=== PATIENT | female | born 1995 | race Caucasian/White ===

== ENCOUNTER 2016-11-27 14:41 | Emergency (ER) | payer OTHER ==
[~2016-11-27] VITALS: Ht 160 cm; Wt 63.6 kg
[~2016-11-27 14:41] MED LIST: CIPR-198 PO; DOXY100C43 PO; METR500T PO
[2016-11-27 14:45] VITALS: BP 120/85; PULSE 93; RESP 14; O2SAT 100
--- NOTE | 2016-11-27 15:16 | ED.REPORT ---
HPI-General Illness Date of Service Nov 27, 2016 ED Provider: Harsha Yen Patient is a 21 year old female who presents to the ED complaining of an abscess on her R buttocks onset 4 days ago. Associated symptoms include R ear pain, hearing loss in R ear (onset 2 weeks), dysuria, fatigue, and a possible yeast infection. She denies fever, chills, abdominal pain, or any other symptoms. She is having intermittent sexual contact with condoms with her most recent contact in the past few weeks. She reports that her dysuria started 1 weeks ago and she has had whitish vaginal discharge. She has had the gonorrhea shot twice but never picked up the antibiotics. She is homeless and has been a heroin user for 8 years. She has had 2 periods of sobriety for one year each while she was . Nursing Notes Stated Complaint: ABSCESS, YEAST INFECTION, EAR PAIN Chief Complaint: Skin Rash/Abscess Nursing Notes Reviewed: Yes Allergies: Coded Allergies: No Known Allergies (Verified Allergy, Unknown, 07/12/16) Scheduled Ciprofloxacin (Ciprofloxacin) 500 Mg Tablet 500 MG PO BID Doxycycline Monohyd (Doxycycline Monohyd) 100 Mg Capsule 100 MG PO BID Metronidazole (Flagyl) 500 Mg Tablet 500 MG PO BID Sulfamethoxazole/Trimeth 800-160 mg (Bactrim DS) 1 Each Tablet 1 TABLET PO BID General Time Seen by MD: 15:15 Chief Complaint Other (Abscess ) Hx Obtained From: Patient Arrived By: Walk-in Sudden in Onset?: Yes Onset Occurred: 4 days ago Symptom Duration: Since onset Similar Sx Previous: Yes Past Medical History Past Medical History Notes: Daily heroin use Admit 10/26- for Bilateral hand cellulits, UTI (?Pyelo), and neck pain, but left AMA Past Medical History Kidney infections Bipolar Hepatitis C Anxiety Gonorrhea Chlamydia Reports: Asthma Reports: Depression, Heroin use, IV Drug use Past Surgical History I&D R arm abscess Reports: (x2) Family History Noncontributory Smoking History Current Every Day Smoker Social History Alcohol Use: Denies alcohol use Drug Use: IV drugs, Meth, Other Other Social History: Local resident, Homeless Ambulatory Status Independent Review of Systems Full Review of Systems Constitutional: Reports: Fatigue, Denies: Chills, Fever Ears / Nose / Throat: Reports: Earache right, Hearing loss right GI: Denies: Abdominal pain Female: Reports: Dysuria, Vaginal discharge Skin: Reports Swelling (Abscess ) Complete sys rev & neg: except as marked. Physical Exam Vital Signs Vital Signs Date Time Temp Pulse Resp B/P Pulse Ox O2 Delivery O2 Flow Rate FiO2 11/27/16 14:45 36.4 93 14 120/85 100 Room Air Initial VS: Reviewed Head / Eyes: Atraumatic, Normocephalic Neck: Full range of motion Respiratory: No respiratory distress Neurologic: Alert, Oriented, Nonfocal Psychiatric: Mood/affect normal, Behavior normal, Normal thought content General/Constitutional: Awake, Alert, Well developed Homeless ENT: Airway patent R throat swelling R TM slightly buldged, no fluid behind eardrum. No erythema Abscess Notes: R buttock about 5 cm lateral to douglas cleft with redness of 5x5 cm Abscess #1 Location/Condition: Positive: Buttock R... (Tender) Interpretation & Diagnostics US bedside: Superficial phlegmon on R buttock about 5 cm lateral to cleft Procedures Incision & Drainage Abscess Time: 17:21 Procedure Performed by: ED physician Consent / Setup / Site Prep: Informed consent provided, Consent from patient , Time-out performed, Hand hygiene observed Location of Abscess: R buttock about 5 cm lateral to douglas cleft Local Anesthesia: Bupivacaine 0.5% (30 mL ) Procedural Sedation/Analgesia: Sedation: Ketamine Incised Abscess with Scalpel: #11 Pus Drained: Medium Irrigation: Yes, Copious, 250 cc Post-Procedure / Complications: Packing placed, Dressing applied, No complications, Condition improved, Tolerated procedure well, Patient stable Proced Mod Sedation/Analgesia Time: 17:05 Procedure Performed by: ED physician Sedation Time: Enter # minutes (20) Consent / Setup: Informed consent provided, Consent from patient, Time-out performed, Hand hygiene observed Indication: Other (Abscess I&D) Preparation: medical office technician applied, Pulse oximeter applied, Constant attendance, Supplemental oxygen, Procedure explained VS Prior to Procedure: All vital signs normal CVS/Resp Exam: Normal breath sounds, Normal heart sounds Sedation: Sedation: Ketamine Response During Procedure: Maintained airway well, Oxygenation stable, Sedation appropriate, Vital signs stable Attestation: I performed procedure, I performed sedation Re-Eval/Medical Decision Time of Eval: 16:36 Re-Evaluation/Progress Note: rechecked patient. Discussed plan for procedural sedation for I&D. Counseled Regarding: Diagnosis, Need for follow-up, When/why to return to ED Discharge & Departure Primary Impression: Abscess of buttock, right Additional Impression: Heroin abuse Disposition: Home Discharge Condition All VS Reviewed: Yes Condition: Improved Patient Instructions: Abscess Incision and Drainage (ED) Additional Instructions: Take the antibiotic twice daily for 10 days (Bactrim). Clean the wound daily. Remove the packing in 24 hours. It will take some weeks to heal completely. Ibuprofen 800mg every 8 hours. Return to the ER if you are getting any worse. Return to Residency clinic, Urgent care or the ER Tuesday for a recheck. Referrals: [facility] Scribe Attestation Portions of this note were transcribed by Karen Roe. I, Dr. Yen personally performed the history, physical exam and medical decision-making; I reviewed and confirmed the accuracy of the information in the transcribed note. Signed by: Karen Roe 11/27/16, [id number] copies to: [facility] Harsha Yen MD Nov 27, 2016 15:16 KAREN ROE Nov 27, 2016 15:46
[2016-11-27] MEDS ORDERED: cefTRIAXone Inj 250 MG, Lidocaine PF 1% Inj 0.9 ML in Syringe 1 EACH IM ONE (15:45)
[2016-11-27] MEDS ORDERED: Ketamine 100 mg/mL 5 mL Inj IM ONE ×2 (16:45→18:50)
[2016-11-27] MEDS ORDERED: SULF1TAB7 PO (18:26)
[2016-11-27] MEDS ORDERED: Trimethoprim-Sulfa 160 mg-800 mg Tablet PO ONE (18:30)
[2016-11-27] MEDS ORDERED: Ondansetron 8 mg ODT Tablet PO ONE (19:45)
[2016-11-28 00:32] VITALS: BP 106/60; PULSE 73; RESP 14; O2SAT 100
[2016-11-28 00:36] VITALS: BP 106/60; PULSE 73; RESP 14; O2SAT 100
== END 2016-11-28 00:41 | disposition home or self-care (01) ==
LOC: SED 14:41
DX: L02.31 Cutaneous abscess of buttock (principal); F11.10 Opioid abuse, uncomplicated; F17.200 Nicotine dependence, unspecified, uncomplicated
CPT/HCPCS: 10061; 94799; 96374; 99285; J0696

== ENCOUNTER 2017-06-02 01:55 | Emergency (ER) | payer OTHER ==
[~2017-06-02] VITALS: Ht 160 cm; Wt 68.2 kg
[~2017-06-02 01:55] MED LIST changes: +SULF1TAB7 PO
[2017-06-02 02:00] VITALS: BP 137/85; PULSE 101; RESP 20; O2SAT 99
--- NOTE | 2017-06-02 02:07 | ED.REPORT ---
HPI-General Illness Date of Service Jun 02, 2017 ED Provider: Dr. Smiley 21 y/o female with a hx of heroin and meth use presents to the ED complaining of left wrist pain and swelling, onset few days ago. The pt has had similar sx before on the right side at which time she was diagnosed with an infection in the wrist. She reports difficulty bending her wrist and holding objects. She denies fever. The pt states "I'm on Methadone but I messed up and injected once. " Nursing Notes Stated Complaint: INFECTION L WRIST Chief Complaint: Extremity Trauma Nursing Notes Reviewed: Yes Allergies: Coded Allergies: No Known Allergies (Verified Allergy, Unknown, 06/02/17) Scheduled Amoxicillin/Clav K ER 1000-62.5 mg (Augmentin XR 1000-62.5 mg) 1 Each Tab.er.12h 1 TABLET PO BID Ciprofloxacin (Ciprofloxacin) 500 Mg Tablet 500 MG PO BID Doxycycline Monohyd (Doxycycline Monohyd) 100 Mg Capsule 100 MG PO BID Metronidazole (Flagyl) 500 Mg Tablet 500 MG PO BID Sulfamethoxazole/Trimeth 800-160 mg (Bactrim DS) 1 Each Tablet 1 TABLET PO BID General Time Seen by MD: 02:07 Chief Complaint Other (left wrist pain) Hx Obtained From: Patient Arrived By: Walk-in Onset Occurred: 3 days ago Symptom Duration: Since onset Location: : Wrist left Quality: Painful Radiation: : Does not radiate Severity: Current: Mild Severity: Maximum: Mild Recent Healthcare: Recent doctor visit Similar Sx Previous: Yes (on right wrist) Past Medical History Past Medical History Kidney infections Bipolar Hepatitis C Anxiety Gonorrhea Chlamydia Asthma Depression Heroin use IV drug use Past Surgical History I&D R arm abscess Family History Noncontributory Smoking History Current Every Day Smoker Social History Alcohol Use: Denies alcohol use Drug Use: IV drugs, Meth, Other Other Social History: Local resident, Homeless Ambulatory Status Independent Review of Systems Full Review of Systems Musculoskeletal: Reports: Joint pain (left wrist), Joint swelling (left wrist) Complete sys rev & neg: except as marked. Physical Exam Vital Signs Vital Signs Date Time Temp Pulse Resp B/P Pulse Ox O2 Delivery O2 Flow Rate FiO2 06/02/17 03:05 36.8 101 16 137/85 99 Room Air 06/02/17 02:00 36.8 101 20 137/85 99 Room Air Initial VS: Reviewed Head / Eyes: Atraumatic, Normocephalic, PERRL Neck: Supple, Non-tender, Full range of motion Respiratory: No respiratory distress Cardiovascular: Intact distal pulses Abdomen / GI: Soft, Non-tender Extremities: Vascular intact, Neuro intact, No swelling, No tenderness Skin: Warm, Dry, No cyanosis Neurologic: Alert, Oriented, Nonfocal General/Constitutional: Awake, Alert, No acute distress, Cooperative Wrist / Hand: Atraumatic, Full range of motion, No deformity, Neurologic intact , Vascular intact No left wrist tenderness with the extension of the thumb. No proximal streaking or involvement of synovial sheath. Cellulitis of dorsal side of the left wrist. Procedures Splint Application - Fx Mgt Time: 02:55 Procedure Performed by: Color Maker Precise Anatomic Location: Left wrist Post-Procedure / Complications: Cap refill normal, Post splint vascular nl, Post splint neuro nl, Condition improved, Tolerated procedure well, Patient stable Re-Eval/Medical Decision Med Decision/Clinical Course 21-year-old IV drug abuser currently on methadone with this prolapse, presents with an infection at her injection site. No indication of T and a synovitis by exam. Hot soaks, Augmentin, and recheck tomorrow. Spica splint placed for comfort. Time of Eval: 02:11 Re-Evaluation/Progress Note: Rechecked pt. Discussed diagnosis and plan to discharge. Pt understands and agrees with the plan. F/U instruction and RTER warning given. All questions addressed. Counseled Regarding: Diagnosis, Need for follow-up, When/why to return to ED Discharge & Departure Primary Impression: Cellulitis Site of cellulitis: extremity Site of cellulitis of extremity: upper extremity Laterality: left Qualified Code: L03.114 - Cellulitis of left upper limb Additional Impression: Heroin abuse Disposition: Home Discharge Condition All VS Reviewed: Yes Condition: Stable Patient Instructions: Cellulitis (ED) Additional Instructions: There is no particular evidence of tenosynovitis at this point. However, your concerns are correct, as that can develop in the setting. Begin Augmentin twice daily. Return tomorrow at 10:00 PM for recheck. Wear thumb spica splint except to wash or soak. Apply a heating pad or hot wet soaks 4-5 times daily to bring blood to the area and help to fight off the infection. Referrals: [facility] Residency [facility] Scribe Attestation Portions of this note were transcribed by Cindy Chaney. I,, personally performed the history, physical exam and medical decision-making;I reviewed and confirmed the accuracy of the information in the transcribed note. Signed by Rachel Le. 06/02/17 Rubén Smiley MD Jun 02, 2017 02:07 Cindy Chaney Jun 02, 2017 02:48
[2017-06-02] MEDS ORDERED: AMPICILLIN SULBACTAM IM ONE ×2 (02:25→02:45)
[2017-06-02] MEDS ORDERED: AMOX-364 PO (02:26)
[2017-06-02] MEDS ORDERED: LIDOCAINE 1% IM ONE (02:45)
[2017-06-02 03:05] VITALS: BP 137/85; PULSE 101; RESP 16; O2SAT 99
== END 2017-06-02 03:06 | disposition home or self-care (01) ==
LOC: SED 01:55
DX: L03.114 Cellulitis of left upper limb (principal); F11.10 Opioid abuse, uncomplicated; F31.9 Bipolar disorder, unspecified; F41.8 Other specified anxiety disorders; J45.909 Unspecified asthma, uncomplicated; F17.200 Nicotine dependence, unspecified, uncomplicated
CPT/HCPCS: 96372; 99284; J0295; J1885

== ENCOUNTER 2017-06-03 01:11 | Emergency (ER) | payer OTHER ==
[~2017-06-03] VITALS: Ht 160 cm; Wt 68.2 kg
[~2017-06-03 01:11] MED LIST changes: +AMOX-364 PO
[2017-06-03 01:16] VITALS: BP 117/79; PULSE 73; RESP 20; O2SAT 100
--- NOTE | 2017-06-03 01:19 | ED.REPORT ---
HPI-Extremity Problem Upper Date of Service Jun 03, 2017 ED Provider: Dr. Pena Pt is a 21 y/o female w/ a hx of IVDA, Hep C, prior MRSA abscesses, presenting to the ED c/o worsening redness, pain, and swelling of her left wrist onset 2 days ago. She previously injected in the affected location with a dirty needle on the day of onset. The patient was seen in the ED last night for this and was given Unasyn IM and discharged with antibiotics which she did not fill. Since yesterday, she has been experiencing worsening pain, swelling, and now decreased range of motion. She c/o associated nausea. Pt denies fever, chills, abnormal diaphoresis, vomiting. The patient has a hx of MRSA abscesses with last hospitalization for osteomyelitis of the right wrist. She is also reporting left ear pain which she attributes to prior sinus troubles. Nursing Notes Stated Complaint: LEFT WRIST INFECTION RECHECK Chief Complaint: Skin Rash/Abscess Nursing Notes Reviewed: Yes (Fleecs, Lightspeed not reconciled) Allergies: Coded Allergies: No Known Allergies (Verified Allergy, Unknown, 06/02/17) Scheduled Amoxicillin/Clav K ER 1000-62.5 mg (Augmentin XR 1000-62.5 mg) 1 Each Tab.er.12h 1 TABLET PO BID Ciprofloxacin (Ciprofloxacin) 500 Mg Tablet 500 MG PO BID Doxycycline Monohyd (Doxycycline Monohyd) 100 Mg Capsule 100 MG PO BID Metronidazole (Flagyl) 500 Mg Tablet 500 MG PO BID Sulfamethoxazole/Trimeth 800-160 mg (Bactrim DS) 1 Each Tablet 1 TABLET PO BID General Time Seen by MD: 01:17 Chief Complaint Other (wrist cell) Hx Obtained From: Patient Arrived By: Walk-in Onset Occurred: 2 days ago Symptom Duration: Since onset Location: : Wrist left Quality: Painful Severity: Current: Moderate Severity: Maximum: Moderate Recent Healthcare: Recent doctor visit, Previous diagnosis Similar Sx Previous: Yes Past Medical History Past Medical History Pyelonephritis Bipolar Hepatitis C Anxiety Gonorrhea Chlamydia Asthma Depression Heroin use IV drug abuse 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 GI: Reports: Nausea, Denies: Vomiting Physical Exam Initial Vital Signs Vital Signs (First) Date Time Temp Pulse Resp B/P Pulse Ox O2 Delivery O2 Flow Rate FiO2 06/03/17 01:16 36.3 73 20 117/79 100 Room Air Initial VS: Reviewed, Vital signs normal Abdomen / GI: Soft Neurologic: Alert, Oriented, Nonfocal Psychiatric: Mood/affect normal, Behavior normal, Normal thought content General/Constitutional: Awake, Alert, No acute distress, Cooperative, Not toxic appearing Cardiovascular: Heart rate NL, Regular rhythm, Heart sounds NL, No murmurs Heart Rate / Rhythm: Negative: Tachycardia Wrist / Hand: No deformity, Neurologic intact, Vascular intact Swelling of the dorsum of the wrist with decreased ROM of the thumb and wrist. No celia warmth No celia fluctuance of a celia abscess Skin: Warm, Dry, Intact Covered in track tapia Interpretation & Diagnostics Lab Results Interpretation Result Diagram: 06/03/17 0130 06/03/17 0130 Test 06/03/17 01:26 06/03/17 01:30 Hold Pete Top Tube Received (Received) White Blood Count 4.0th/mm3 (3.8-10.1) Red Blood Count 4.57mil/mm3 (3.90-5.20) Hemoglobin 11.5g/dL (12.0-15.6) Hematocrit 35.0% (35.0-46.0) Mean Corpuscular Volume 76.6fL (81-100) Mean Corpuscular Hemoglobin 25.2pg (27.0-35.0) Mean Corpuscular Hemoglobin Concent 32.9% (32.0-37.0) Red Cell Distribution Width 14.1% (12.3-15.4) Platelet Count 234bil/L (150-400) Neutrophils (%) (Auto) 40.1% (40-74) Lymphocytes (%) (Auto) 50.6% (14-46) Monocytes (%) (Auto) 8.4% (4-12) Eosinophils (%) (Auto) 0.5% (0-5) Basophils (%) (Auto) 0.2% (0-3) Erythrocyte Sedimentation Rate 17mm/hr (0-32) Sodium Level 137mEq/L (134-144) Potassium Level 4.0mEq/L (3.5-5.2) Chloride Level 100mEq/L (97-108) Carbon Dioxide Level 23mmol/L (18-29) Blood Urea Nitrogen 14mg/dL (6-20) Creatinine 0.59mg/dL (0.57-1.00) Estimat Glomerular Filtration Rate 181mL/min (>59) Glucose Level 85mg/dL (60-99) Calcium Level 9.2mg/dL (8.5-10.1) Total Bilirubin 0.3mg/dL (0.0-1.2) Aspartate Amino Transf (AST/SGOT) 28U/L (0-50) Alanine Aminotransferase (ALT/SGPT) 24U/L (0-32) Alkaline Phosphatase 124U/L (25-150) C-Reactive Protein 0.1mg/dL (0.0-0.5) Total Protein 7.2g/dL (6.4-8.4) Albumin 4.0g/dL (3.4-5.0) Lab Results Interpretation: CBC normal CMP normal ESR normal CRP normal X-Ray Interpretation Xray Interpretation: No signs of osteomyelitis X-Ray Ordered: Wrist left Interpretation / Wet Read by: Wet read ED physician Interpretation: Normal exam Re-Eval/Medical Decision Med Decision/Clinical Course This is a 21-year-old female. History of IVDA who returns for request for recheck having developed some slightly worsening pain and swelling in the left wrist. She was seen last night and admitted and injected drugs in the left wrist,'s concern is a dirty needle, may be developing an infection. She has had increasing pain and discomfort. She received an IM dose of Unasyn, and was given a prescription for Augmentin, but did not fill or take it. Today she thinks the swelling and pain and discomfort slightly worse. She is afebrile, nontoxic. She does have some mild swelling, but I do not appreciate celia signs of overt abscess, I am concerned about developing soft tissue infection and cellulitis-but there is no beefy redness or warmth, but there is some visible swelling. She has decreased range of motion of the wrist, but I do not appreciate isolated focus along the single tendon sheath to indicate tenosynovitis. I do not appreciate celia joint involvement. The patient has a complex history of multiple prior infections as well. She does not appear toxic. She is on methadone as well. At this point the patient received a second dose of IM Unasyn. A prepack of Augmentin and is being provided to help improve compliance. Radiographs are obtained were negative. I still think that continued antibiotics are appropriate and not finding indications suggest an abscess, need for hospitalization-but close follow-up still over the next few days is still warranted. The weekend is approaching, indicated to be appropriate for her to return again to the bridge department for another recheck in 2 days Source of Hx: Old records Differential Diagnosis: Positive: Cellulitis, Negative: Abrasion, Gamekeepers thumb, Laceration, Shoulder disloc ant, Shoulder disloc post, Subungual hematoma Counseled Regarding: Diagnosis, Lab results, Need for follow-up, When/why to return to ED Discharge & Departure Impression: Primary Impression: Infection of left wrist Additional Impression: Intravenous drug abuse Disposition: Home Discharge Condition All VS Reviewed: Yes Condition: Improved Additional Instructions: 1. You received an injection of the antibiotic Unasyn in the ED. 2. It is critically important that you take the oral antibiotics! - Take augmentin 875mg twice a day for 10 days. 3. Wear the splint for comfort. 4. Consider following up with [facility] for help with chemical dependency. 5. You should be rechecked again in 2 days. Return to the ED again if further worsening - fever, increased pain/swelling. Referrals: [facility] (PCP) [facility] Residency Clinic Scribe Attestation Portions of this note were transcribed by El Drake. I, Dr. Pena personally performed the history, physical exam and medical decision-making; I reviewed and confirmed the accuracy of the information in the transcribed note. Jose Pena MD Jun 03, 2017 01:18 EL DRAKE Jun 03, 2017 01:28
[2017-06-03] MEDS ORDERED: _Amoxicillin-Clavulanate 875-125 mg Tablet PO SCH (01:30)
[2017-06-03] MEDS ORDERED: AMPICILLIN SULBACTAM IM ONE (01:30)
[2017-06-03 01:53] LABS: Mean Corpuscular Volume 76.6 fL (81-100)
[2017-06-03 01:54] LABS: BASOPHILS % (AUTO) 0.2 % (0-3); EOSINOPHILS % (AUTO) 0.5 % (0-5); MONOCYTES % (AUTO) 8.4 % (4-12); Mean Corpuscular Hemoglobin 25.2 pg (27.0-35.0); NEUTROPHILS % (AUTO) 40.1 % (40-74); Platelet Count 234 bil/L (150-400)
[2017-06-03 02:13] LABS: ERYTHROCYTE SEDIMENTATION RATE 17 mm/hr (0-32)
[2017-06-03 02:41] VITALS: BP 110/74; PULSE 70; RESP 18; O2SAT 100
--- NOTE | 2017-06-03 08:32 | DRSVH ---
PROCEDURE: X-RAY LEFT WRIST COMPLETE, MINIMUM THREE VIEWS ([id number]) INDICATIONS: pain, swelling TECHNIQUE: 3 views of the wrist were acquired. COMPARISON: None. FINDINGS: Bones: No fractures or dislocations. No suspicious bony lesions. Scaphoid view: Not requested. Soft tissues: No suspicious soft tissue calcifications. IMPRESSION: Although no bony erosions are identified, plain film radiography is relatively insensiti ve in the acute phases of osteomyelitis and may not demonstrate radiographic changes for 15 days. If acute osteomyelitis is of clinical concern, nuclear medicine regional bone scan or MRI is recommende d. Dictated by: Nicholas Rudolph [facility] Interpreted: Brandon Rosa MD on 06/03/2017 at 8:31 Transcribed by: MILADIS on 06/03/2017 at 8:31 Approved by: Brandon Rosa M.D. on 06/03/2017 at 14:58
== END 2017-06-03 02:42 | disposition home or self-care (01) ==
LOC: SED 01:11
DX: L08.9 Local infection of the skin and subcutaneous tissue, unspecified (principal); F19.10 Other psychoactive substance abuse, uncomplicated; F17.200 Nicotine dependence, unspecified, uncomplicated
CPT/HCPCS: 36415; 73110; 80053; 85025; 85651; 86140; 96372; 99284; J0295

== ENCOUNTER 2017-06-20 21:14 | Emergency (ER) | payer OTHER ==
[~2017-06-20] VITALS: Ht 160 cm; Wt 70.5 kg
[2017-06-20 21:32] VITALS: BP 116/78; PULSE 83; RESP 14; O2SAT 100
--- NOTE | 2017-06-20 23:22 | ED.REPORT ---
HPI-General Illness Date of Service Jun 20, 2017 ED Provider: Festus Asencio MD The pt is a 21 y/o female with a hx of IV drug abuse (currently on methadone), Hep C, prior MRSA abscesses who presents to the ED complaining of a painful abscess on the left thigh laterally for the last 2 weeks. She describes her pain as throbbing, constant and rates it 8/10 in severity. It gets worse when she touches it, otherwise no notable alleviating or exacerbating factors. No fevers, chills. No other pertinent complaints at this time, including no nausea , vomiting,shortness of breath, chest pain, difficulty walking, hip pain, knee pain. Nursing Notes Stated Complaint: LEFT UPPER THIGH ABSCESS Chief Complaint: Extremity Trauma Nursing Notes Reviewed: Yes Allergies: Coded Allergies: No Known Allergies (Verified Allergy, Unknown, 06/02/17) Scheduled Amoxicillin/Clav K ER 1000-62.5 mg (Augmentin XR 1000-62.5 mg) 1 Each Tab.er.12h 1 TABLET PO BID Ciprofloxacin (Ciprofloxacin) 500 Mg Tablet 500 MG PO BID Doxycycline Monohyd (Doxycycline Monohyd) 100 Mg Capsule 100 MG PO BID Doxycycline Monohyd (Doxycycline Monohyd) 100 Mg Capsule 100 MG PO BID Metronidazole (Flagyl) 500 Mg Tablet 500 MG PO BID Sulfamethoxazole/Trimeth 800-160 mg (Bactrim DS) 1 Each Tablet 1 TABLET PO BID General Time Seen by MD: 23:11 Chief Complaint Other (painful abscess on left thigh) Hx Obtained From: Patient Arrived By: Walk-in Onset Occurred: More than a week ago... 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 Physical Exam Nursing note and vitals reviewed. Constitutional: Well-developed, well-nourished. Not diaphoretic. Head: Normocephalic and atraumatic. Mouth/Throat: Mucous membranes moist. Eyes: No conjunctival injection. No scleral icterus. Neck: Supple, no tracheal deviation. Cardiovascular: Normal rate,regular rhythm. Equal and intact distal pulses throughout. Pulmonary/Chest: Effort normal. No respiratory distress. Abdominal: Soft. No distension. There is no tenderness, rebound, or guarding. Musculoskeletal: Range of motion grossly intact, moving all extremities. Full range of motion at the left hip and left knee without pain. Neurological: AOx3. Grossly nonfocal exam. Strength and sensation intact and equal to bilateral upper and lower extremities. Skin: Warm and dry. No pallor appreciated. 5x3cm area of erythema to the left lateral thigh. Small amount of induration without significant fluctuance. No erythema extending towards the hip or down to the knee. Psychiatric: Appropriate mood and affect. Behavior appears normal. Vital Signs Vital Signs Date Time Temp Pulse Resp B/P Pulse Ox O2 Delivery O2 Flow Rate FiO2 06/20/17 21:32 36.8 83 14 116/78 100 Room Air Procedures Incision & Drainage Abscess Time: 00:01 Procedure Performed by: ED physician Consent / Setup / Site Prep: Consent from patient, Time-out performed, Hand hygiene observed, Stand sterile technique, Standard surgical scrub, Sterile drapes applied Location of Abscess: left lateral thigh Skin Preparation Agent: Betadine Local Anesthesia: Lidocaine w epi 1% Incised Abscess with Scalpel: #11 Pus Drained: Medium, Purulent discharge Post-Procedure / Complications: Packing placed, Dressing applied, No complications, Condition improved, Tolerated procedure well, Patient stable Re-Eval/Medical Decision Med Decision/Clinical Course In summary, 21-year-old female with a history of recurrent abscesses presenting to the ED for evaluation of an abscess to the left lateral thigh. No systemic symptoms. Vital signs within normal limits. Afebrile, nontoxic appearing. I do not think that a laboratory workup is necessary at this time given that she is well-appearing and afebrile, normal examination, no systemic symptoms. No streaking up towards her hip or down to the knee, full range of motion, no clinical suspicion for joint involvement. Incision and drainage performed as above; tolerated well. Plan discharge home with a prescription for antibiotics , very careful return precautions and instructions for her I&D care, and PCP follow-up in the next 1-2 days for reassessment. Patient agreeable with plan as stated, no further questions. Source of Hx: Old records Time of Eval: 23:57 Re-Evaluation/Progress Note: Bedside ultrasound done. Time of Eval: 00:18 Counseled Regarding: Diagnosis, Need for follow-up, When/why to return to ED Discharge & Departure Primary Impression: Abscess of left thigh Additional Impression: Intravenous drug abuse Disposition: Home Discharge Condition All VS Reviewed: Yes Condition: Improved Patient Instructions: Abscess (ED), Incision and Drainage (ED) Additional Instructions: Your abscess was drained in the ED today. Please read the attached instructions on how best to care for this. Follow up with your primary care provider for further evaluation in the next 1 to 2 days. Return to the emergency department in case of fever, chills, if the redness going up your legs, difficulty moving your legs or hips, or if you have any other symptoms of concern to you. Referrals: [facility] Scribe Attestation Portions of this note were transcribed by Cindy Chaney. I,, personally performed the history, physical exam and medical decision-making;I reviewed and confirmed the accuracy of the information in the transcribed note. Signed by Rachel Le. 06/21/17 Festus Asencio MD Jun 20, 2017 23:22 Cindy Chaney Jun 20, 2017 23:56
[2017-06-20] MEDS ORDERED: Lidocaine 1%-Epi 1:100,000 20 mL Inj ONE (23:52)
[2017-06-21] MEDS ORDERED: DOXY100C43 PO (00:23)
[2017-06-21 00:38] VITALS: BP 109/73; PULSE 76; RESP 18; O2SAT 100
== END 2017-06-21 00:39 | disposition home or self-care (01) ==
LOC: SED 21:14
DX: L02.416 Cutaneous abscess of left lower limb (principal); F11.10 Opioid abuse, uncomplicated; F15.10 Other stimulant abuse, uncomplicated; F17.200 Nicotine dependence, unspecified, uncomplicated; B18.2 Chronic viral hepatitis C; Z86.14 Personal history of Methicillin resistant Staphylococcus aureus infection

== ENCOUNTER 2017-06-25 20:07 | Inpatient (IN) | payer OTHER ==
[~2017-06-25] VITALS: Ht 160 cm; Wt 69.2 kg
[2017-06-25 20:13] VITALS: BP 111/75; PULSE 120; RESP 17; O2SAT 99
--- NOTE | 2017-06-25 21:12 | ED.REPORT ---
HPI-Rash / Abscess Date of Service Jun 25, 2017 ED Provider: Devon Palacio MD Patient is a 21 year old female with a history of IV drug use (currently on Methadone), Hepatitis C, recurrent abscesses who presents to the ED complaining of increasing pain of her left thigh for the past week. Associated symptoms include fever, spreading redness, pain radiating up into her hip and difficulty walking due to pain. The patient was seen at the ED on 06/21/17 to have the abscess on her left thigh drained and has been taking the Keflex that was prescribed to her but her pain has only gotten worse. Nursing Notes Stated Complaint: ABSCESS ON LEFT ARM Chief Complaint: Skin Rash/Abscess Nursing Notes Reviewed: Yes Allergies: Coded Allergies: No Known Allergies (Verified Allergy, Unknown, 06/02/17) Scheduled Doxycycline Monohyd (Doxycycline Monohyd) 100 Mg Capsule 100 MG PO BID Methadone (Methadone) 10 Mg Tab 70 MG PO QAM Scheduled PRN Ibuprofen (Ibuprofen) 200 Mg Capsule 400 MG PO QID PRN PRN For Pain General Time Seen by MD: 21:05 Chief Complaint Abscess Hx Obtained From: Patient Arrived By: Walk-in Onset Occurred: More than a week ago... 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 Neurologic: Reports: Problem walking (due to pain) Physical Exam Initial Vital Signs Vital Signs (First) Date Time Temp Pulse Resp B/P Pulse Ox O2 Delivery O2 Flow Rate FiO2 06/25/17 20:13 37.3 120 17 111/75 99 Room Air Initial VS: Reviewed General/Constitutional: Awake, Alert Skin: Warm, Dry Head / Eyes: Atraumatic, Normocephalic, PERRL, EOMI Respiratory / Chest: Atraumatic, Breath sounds NL, Breath sounds = bilat, No respiratory distress Cardiovascular: Regular rhythm, Heart sounds NL, No gallop, No murmurs, No rubs Upper Extremity / MS: Atraumatic, Full range of motion LOWER EXTREMITIES: 15cm x 15 cm area of erythema and induration of the left lateral thigh in the middle there is a 1cm laceration from previous I&D no fluctuance no obvious abscess for I&D large patch of cellulitis Neurologic: Oriented X3, Speech NL Psychiatric: Affect NL, Mood NL Interpretation & Diagnostics Lab Results Interpretation Result Diagram: 06/25/176 06/25/170 X-Ray Chest Interpretation Chest Xray Interpretation: central line placed slightly too deep View: Portable, 1 view Interpretation / Wet Read by: Wet read ED physician Procedures Central Line Placement Time: 22:30 Procedure Performed by: ED physician Consent / Setup / Site Prep: Consent from patient, Time-out performed, Pulse oximeter applied, vehicle monitor technician applied, Hand hygiene observed, Standard surgical scrub, Sterile drapes applied, Position Trendelenburg Skin Preparation Agent: Betadine Local Anesthesia: Lidocaine 1% Procedural Sedation/Analgesia: Analgesia: Dilaudid Side / Location / Ultrasound: Internal jugular right Catheter / Lumen / Technique: Triple lumen, Good blood return, Secured w catheter device Post-Procedure / Complications: Antibiotic oint applied, Dressing placed, CXR neg for pneumothorax, Condition improved, Tolerated procedure well, Patient stable Re-Eval/Medical Decision Med Decision/Clinical Course Patient is a 21 year old female with a history of IV drug use (currently on Methadone), Hepatitis C, recurrent abscesses who presents to the ED complaining of increasing pain of her left thigh for the past week. She was recently seen in this emergency department at which time incision and drainage of a left thigh abscess was performed. Since going home she has had increasing firmness and redness about her left thigh. Here in the emergency department the patient is afebrile stable vital signs and examination as above. She is noted however to be tachycardic. Multiple attempts were made at establishing peripheral IV access. We were unable to establish a peripheral IV or an external jugular IV. Given the patient's need for IV antibiotics I performed placement of central line as documented above. Medications: IV Vancomycin and Ceftriaxone Chest X-ray after central line: line slightly too deep Repeat X-ray shows better placement of the line Labs: CBC unremarkable besides a hematocrit of 31.4 and lactic of 0.9 Patient remained hemodynamically stable and afebrile. Ultrasound was obtained which demonstrated cobblestoning appearance of the soft tissues consistent with cellulitis though there was no pocket of fluid amenable to incision and drainage. Patient was discussed with hospitalist and admitted for further treatment with IV antibiotics. Transferred in stable condition. Re-Evaluation/Progress #1: Time of Eval: 21:37 Re-Evaluation/Progress Note: Discussed plan for admit. Patient understands and agrees to plan. All questions were addressed. Re-Evaluation/Progress #2: Time of Eval: 22:00 Re-Evaluation/Progress Note: Discussed plan for central line placement. Patient understands and agrees to plan. All questions were addressed. Consultation #1: Referral / Consult Name: Sera Ortiz DO Consulted With: Hospitalist Call Returned at: 21:38 Paper Machine Supervisor: Agrees with eval, Agrees with plan Note: Consult with Dr. Ortiz, who would like a call back once the labs are done. Consultation #2: Referral / Consult Name: Sera Ortiz DO Consulted With: Hospitalist Call Returned at: 02:05 Paper Machine Supervisor: Agrees with eval, Agrees with plan, Accepts admit Counseled Regarding: Diagnosis, Lab results, Need for admission Discharge & Departure Impression: Primary Impression: Cellulitis Site of cellulitis: extremity Site of cellulitis of extremity: lower extremity Laterality: left Qualified Code: L03.116 - Cellulitis of left lower limb Additional Impressions: IV drug abuse Tachycardia Disposition: ADMITTED TO HOSPITAL Discharge Condition All VS Reviewed: Yes Condition: Stable Referrals: NOPCP (PCP) Rachel Attestation Portions of this note were transcribed by Nicky Sanford. I, Dr. Palacio personally performed the history, physical exam and medical decision-making; I reviewed and confirmed the accuracy of the information in the transcribed note. Signed by: Rachel Rodriguez, 06/25/17 Devon Palacio MD Jun 25, 2017 21:12 Linn Sanford Jun 25, 2017 21:36
[2017-06-25] MEDS ORDERED: 0.9% Sodium Chloride 1,000 ML IV ONE (21:39)
[2017-06-25] MEDS ORDERED: cefTRIAXone Inj 2,000 MG in Dextrose 5% 50 ML IV STA (21:39)
[2017-06-25] MEDS ORDERED: Ondansetron 2 mg/mL 2 mL Inj IVPUSH PRN (21:40)
[2017-06-25] MEDS ORDERED: Vancomycin Dose per Pharmacist XX ONE (21:40)
[2017-06-25] MEDS ORDERED: Alum-Mag Hydrox-Simeth 30 mL Suspension PO PRN (21:40)
[2017-06-25] MEDS ORDERED: Vancomycin Inj 1,500 MG in 0.9% Sodium Chloride 500 ML IV ONE (21:50)
[2017-06-25] MEDS ORDERED: MTH10T PO (21:59)
[2017-06-25] MEDS ORDERED: IBUP200C PO (22:00)
[2017-06-25 22:09] LABS: BASOPHILS % (AUTO) 0.1 % (0-3); EOSINOPHILS % (AUTO) 0.7 % (0-5); MONOCYTES % (AUTO) 6.7 % (4-12); Mean Corpuscular Hemoglobin 25.6 pg (27.0-35.0); Mean Corpuscular Volume 77.9 fL (81-100); Platelet Count 122 bil/L (150-400)
[2017-06-25] MEDS ORDERED: HYDROmorphone 1 mg/mL Inj ONE (22:32)
[2017-06-25 23:01] VITALS: BP 126/70; PULSE 94; RESP 16; O2SAT 97
[2017-06-25 23:36] VITALS: BP 118/69; PULSE 91; RESP 16; O2SAT 95
[2017-06-26] VITALS (14 sets, daily range): BP systolic 95–118; BP diastolic 60–76; PULSE 70–95; RESP 14–20; O2SAT 93–100
[2017-06-26] MEDS: Vancomycin Dose per Pharmacist XX SCH ×2 (01:35→07:31)
--- NOTE | 2017-06-26 01:40 | NUR ---
Admit Note Pt. arrived on floor at 0140. Pt. alert and oriented x3. Sharp container taken out of room. Security locked belongings in closet. Pt. had central line intact and patent. Pt. requested benadryl. Diana aware and ordered Benadryl PO. Pt. placed on contact precautions per Diana's MD order. Will continue to monitor.
--- NOTE | 2017-06-26 01:45 | NUR ---
Blood cult Pt. declined 2nd blood culture being taken.
--- NOTE | 2017-06-26 01:47 | PCM.HPMED ---
Subjective Date of Service Jun 26, 2017 Primary Provider: Admitting Physician: Sera Ortiz DO Primary Care Physician: Job Attending Physician: Sera Ortiz DO Admit Status: From the Emergency Department Chief Complaint: worsening pain on thigh History of Present Illness: 21yoF with history of IVDU, hepatitis C, MRSA abscesses admitted due to outpatient failure of treatment of cellulitis s/p I&D Patient states that she has been on methadone but had a relapse about three weeks ago at which time she notes a left thigh wound that began to develop. It continued to worsen until 5 days ago when she was seen at [facility] ED and the area was found to have an abscess. I&D was completed and patient was discharged with abx. Despite taking abx her left thigh cellulitis worsened. Associated symptoms include fevers and chills. She denies any other complaints at this time Patient is currently on methadone treatment and obtains her methadone from [facility]. Daily dose is 70mg / day. Review of Systems: complete review of systems obtained. positive as per hpi otherwise negative. 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 Surgical History I&D R arm abscess Social History Hx Alcohol Use: No Hx Substance Use: Yes (heroin, meth) Smoking Status: Current Every Day Smoker Exam Vital Signs Vital Sign - Last Date Time Temp Pulse Resp B/P Pulse Ox O2 Delivery O2 Flow Rate FiO2 06/26/17 00:25 36.4 91 16 118/69 95 Room Air Intake and Output 06/25/17 06/25/17 06/26/17 Cumulative From/Thru 15:00 23:00 07:00 06/25/17 20:13 - 06/25/17 23:00 Intake Total 990 ml 990 ml Balance 990 ml 990 ml Intake IV Total 990 ml 990 ml Exam General: Alert, Oriented X3, Cooperative, No acute distress Eyes: PERRLA, Scleral Anicteric Mouth: Mouth Normal, Mucous Membranes Moist/[place] Neck: Supple, no Thyromegaly, trachea central. Chest & Lungs: Clear to auscultation & percussion, No adventitious breath sounds, no crackles, no wheeze Cardiovascular: Normal S1, Normal S2, No Murmurs/Rubs/Gallops, Regular Rate/ Rhythm Pulses: Radial (present and equal), Dorsalis Pedi (present and equal) Abdomen: Soft,Non-tender, Non-distended, Normoactive bowel tones. Musculoskeletal: Unremarkable. Normal range of motion, no swollen or erythematous joints Extremities: No edema, no cyanosis, no clubbing. Left thigh buttocks erythema and induration. increased warmth no crepitus pain not out of proportion to exam Skin: No rashes. Warm and dry, no erythematous areas Neurological: Grossly neurologically intact, Normal Speech, Sensation Intact Lymphatic: Lymph nodes Cervical and Axillary not palpable. Lab and Diagnostics Result Diagram: 06/25/176 06/25/17 2320 Assessment & Plan 21yoF with history of IVDU, hepatitis C, MRSA abscesses admitted due to outpatient failure of treatment of cellulitis s/p I&D Cellulitis, acute, POA -abscess drained by ED and failed outpatient treatment with keflex -does not meet sepsis criteria -LRINEC score 0, less likely nec fasc -given ceftriaxone / vancomycin in ED, will continue piperacillin/tazobactam and vancomycin (pharmacy to dose) -history of MRSA associated infection, contact precautions Thrombocytopenia, acute, POA -unclear etiology -continue to monitor with am labs IVDU, chronic, POA -patient is currently on methadone with recent relapse -70mg per day - administered by [facility] -she has her tuesday dose available at home but will need to confirm dose for tuesday Pain Evaluation: Adequate Pain Control GI Prophylaxis: Not indicated VTE Prophylaxis: Sub-Q Heparin (Unfractionated) Resuscitation Status: CPR: Attempt Resuscitation Sera Ortiz DO Jun 26, 2017 01:47
[2017-06-26] MEDS ORDERED: Piperacillin-Tazo 3.375 Gm Inj 3.375 GM in Dextrose 5% Minibag Plus 50 ML IV ONE (02:00)
[2017-06-26] MEDS: diphenhydrAMINE 25 mg Capsule PO PRN (02:54)
--- NOTE | 2017-06-26 05:02 | PCM.CONPHA ---
Subjective Date of Service: Jun 26, 2017 Requesting Provider: Sera Ortiz DO worsening pain on thigh History of Present Illness Failed outpatient antibiotic for cellulitis on thigh, s/p I&D Reason for Pharmacy Consult: Vancomycin Dosing Objective Assessment/Plan Assessment/Plan A/ - 21 y/o female admitted in for worsening pain of cellulitis on her thigh. She recently received I&D and discharged with po abx. She has hx of MRSA abscesses/osteomyelitis, IVDU but on methadone currently, hep C. Vancomycin ordered for empirical coverage - In ED, received Rocephin x1, loading dose of Vancomycin 1500mg @2330 06/25 , and Zosyn which to be continued - Afebrile, WBC: 7.3, blood cultures are pending - Wt: 69.2kg, ht: 160cm, BMI: 27 kg/m2; SCr: 0.63 mg/dL, est. clearance > 150ml/min, t1/2~5hrs, Vd~48L P/ - Give Vancomycin 750mg iv q6h. Trough level ordered @2230 06/26. This regimen would produce a trough around 15 Pharmacy will monitor daily and make necessary adjustment Thank you Martell Ewing Jun 26, 2017 05:02
[2017-06-26 06:04] LABS: BASOPHILS % (AUTO) 0.1 % (0-3); EOSINOPHILS % (AUTO) 0.7 % (0-5); MONOCYTES % (AUTO) 8.2 % (4-12); Mean Corpuscular Hemoglobin 25.5 pg (27.0-35.0); Mean Corpuscular Volume 78.1 fL (81-100); NEUTROPHILS % (AUTO) 68.7 % (40-74); Platelet Count 192 bil/L (150-400)
[2017-06-26] MEDS: Vancomycin Inj 750 MG in 0.9% Sodium Chloride 250 ML IV SCH ×4 (06:04→23:42)
--- NOTE | 2017-06-26 08:05 | DRSVH ---
PROCEDURE: US EXTREMITY SONOGRAM LIMITED ([id number]) INDICATIONS: L thigh asbcess? TECHNIQUE: Real-time scanning was performed of the left upper thigh, with image documentation. COMPARISON: None. FINDINGS: No discrete fluid collection is visualized. There is focal edema within the area and sedate d. IMPRESSION: Probable phlegmon of the left upper thigh. No discrete abscess amenable to percutaneous d rainage. These findings are concordant with the overnight interpretation. Dictated by: Katelin Hutchinson M.D. on 06/26/2017 at 8:01 Approved by: Katelin Hutchinson M.D. on 06/26/2017 at 8:03
[2017-06-26] MEDS: Heparin 5,000 Unit/mL Inj SUBQ SCH ×2 (08:30→16:30)
--- NOTE | 2017-06-26 08:44 | DRSVH ---
PROCEDURE: X-RAY CHEST ONE VIEW, PORTABLE ([id number]) INDICATIONS: central line TECHNIQUE: One view of the chest was acquired. COMPARISON: None. FINDINGS: Surgical changes and devices: There is a right central venous catheter, the tip of which is projected over the right atrium. Lungs and pleura: No pleural effusions or pneumothorax. Lungs are clear. Mediastinum: Mediastinal contours appear normal. Heart size is normal. Bones and chest wall: No suspicious bony lesions. Overlying soft tissues appear unremarkable. IMPRESSION: Right central venous catheter, the tip of which is projected over the right atrium. Dictated by: Katelin Hutchinson M.D. on 06/26/2017 at 8:41 Approved by: Katelin Hutchinson M.D. on 06/26/2017 at 8:42
--- NOTE | 2017-06-26 08:44 | DRSVH ---
PROCEDURE: X-RAY CHEST ONE VIEW ([id number]) INDICATIONS: central line repositioned TECHNIQUE: One view of the chest was acquired. COMPARISON: None. FINDINGS: Surgical changes and devices: The central venous catheter has been retracted and the tip is now proje cted over the cavoatrial junction. Lungs and pleura: No pleural effusions or pneumothorax. Lungs are clear. Mediastinum: Mediastinal contours appear normal. Heart size is normal. Bones and chest wall: No suspicious bony lesions. Overlying soft tissues appear unremarkable. IMPRESSION: Tip of the central venous catheter now projected over the cavoatrial junction, as expecte d. Dictated by: Katelin Hutchinson M.D. on 06/26/2017 at 8:42 Approved by: Katelin Hutchinson M.D. on 06/26/2017 at 8:42
--- NOTE | 2017-06-26 09:30 | NUR ---
PAIN Patient has been sleeping since 0700. Via FELDT scale patients pain level is 0/10. When patient woke up at around 0915. Patient stated that she was in pain. Rated her pain as 6/10. Dr. Gibbs was made aware. Will continue to monitor.
--- NOTE | 2017-06-26 10:56 | PCM.PNMED ---
Subjective Date of Service Jun 26, 2017 Subjective Complaining of significant left thigh pain. Has not had her usual methadone yet this morning. Says she had both Toradol and IV Dilaudid in the emergency department and not sure which one that gave her pain relief. Exam Vital Signs Vital Sign - Last Date Time Temp Pulse Resp B/P Pulse Ox O2 Delivery O2 Flow Rate FiO2 06/26/17 09:34 36.2 84 20 101/66 99 Room Air Intake and Output 06/25/17 06/25/17 06/26/17 Cumulative From/Thru 15:00 23:00 07:00 06/25/17 20:13 - 06/26/17 06:47 Intake Total 990 ml 536 ml 1526 ml Output Total 800 ml 800 ml Balance 990 ml -264 ml 726 ml Intake Oral 400 ml 400 ml IV Total 990 ml 136 ml 1126 ml Output Urine Total 800 ml 800 ml Exam General: Alert and oriented, no acute distress Heart: Regular Lungs: Clear Abdomen: Soft, non-tender Extremities: Left lateral thigh with small incisional wound from I&D several days ago, anterior to this is several centimeter area of mild erythema, firmness and tenderness IVs and Medications Medications Reviewed: Medications were reviewed in detail Lab and Diagnostics Result Diagram: 06/26/1752906/26/17 0530 Assessment & Plan 21yoF with history of IVDU, hepatitis C, MRSA abscesses admitted due to outpatient failure of treatment of cellulitis s/p I&D Cellulitis left thigh, rule out abscess, acute, POA -abscess drained by ED and failed outpatient treatment with keflex -does not meet sepsis criteria -LRINEC score 0, less likely nec fasc -given ceftriaxone / vancomycin in ED, will continue piperacillin/tazobactam and vancomycin (pharmacy to dose) -history of MRSA associated infection, contact precautions - surg consultation - For pain control we will initially try oral oxycodone 10 mg every 4 hours when necessary and IV Toradol when necessary Microcytic anemia, stable this morning compared to admission - Obtain iron panel Thrombocytopenia, acute, POA -unclear etiology -continue to monitor with am labs, in normal range the day following admission IVDU, chronic, POA -patient is currently on methadone with recent relapse -70mg per day - administered by [facility], will continue same here but will need to confirm dose for mary GI Prophylaxis: Not indicated VTE Prophylaxis: Sub-Q Heparin (Unfractionated) Resuscitation Status: CPR: Attempt Resuscitation Cahris Gibbs MD Jun 26, 2017 10:56
--- NOTE | 2017-06-26 11:00 | NUR ---
BEHAVIOR Patient was seen and examined by Dr. Gibbs earlier. She stated that she will be OK taking PO pain meds plus her Methadone. When this insurance underwriter sales was in to give her the Methadone and Oxicodone patient stated that it was too much pills and she wants it in liquids form or IV form. Patient stated: "The reason I have this IV is so I can get my meds through it." Refused to take PO meds and stated that she might as well leave AMA. Patient took her IV out of her IJ and went to the bathroom. This insurance underwriter sales made patient aware that her message will be conveyed to the doctor. Dr. Gibbs made aware. New orders for IV harris medication received and administered. Addendum: 06/26/17 at 1440 by MAURICE WEST RN BEHAVIOR Patient's behavior has been appropriate so far after getting her IV pain meds. Patient to go to surgery this PM per Dr. Meyers. Patient is aware. She has been NPO since 929.
[2017-06-26] MEDS: Piper-Tazo 3.375 Gm/50 mL D5W Minibag Plus - Q8H over 4 hrs IV SCH ×4 (11:12→19:38)
[2017-06-26 11:22] LABS: Unsaturated Iron Binding 201.9 ug/dL
[2017-06-26] MEDS ORDERED: oxyCODONE 1 mg/mL 5 mL Liquid PO PRN (11:35)
[2017-06-26] MEDS: HYDROmorphone 1 mg/mL Inj IVPUSH PRN ×4 (11:50→23:42)
[2017-06-26] MEDS ORDERED: Dexamethasone 4 mg/mL Inj ONE (14:02)
[2017-06-26] MEDS ORDERED: fentaNYL-PF 50 mCg/mL 2 mL Inj ONE (14:02)
[2017-06-26] MEDS ORDERED: Ondansetron 2 mg/mL 2 mL Inj ONE (14:02)
[2017-06-26] MEDS ORDERED: Ketamine 10 mg/mL 20 mL Inj ONE (14:02)
[2017-06-26] MEDS ORDERED: HYDROmorphone 1 mg/mL Inj ONE (14:02)
[2017-06-26] MEDS ORDERED: Propofol 10 mg/mL 20 mL Inj ONE (14:02)
[2017-06-26] MEDS ORDERED: Rocuronium 10 mg/mL 5 mL Inj ONE (14:02)
--- NOTE | 2017-06-26 15:18 | NUR ---
TO OR Report given to LENY Robert. IV ABT ongoing. Will be transferring to the OR. Care endorsed to Maria M Urrutia RN.
[2017-06-26] MEDS ORDERED: Lactated Ringer's 1,000 ML IV ONE (15:35)
--- NOTE | 2017-06-26 16:05 | PCM.HPANE ---
Patient Data Date of Service: Jun 26, 2017 Surgeon Admitting Provider:Sera Ortiz DO Attending Provider:Charis Gibbs MD Primary Care Physician:Nopcp Other Provider: Reason for Visit Left Thigh Cellulitis, Abscess Ht/WT & BMI Body Mass Index 27.03 Allergies Coded Allergies: No Known Allergies (Verified Allergy, Unknown, 06/02/17) Past Anesthesia History Anesthesia History: Denies:: Anesthesia Reactions Diabetes History Hx Diabetes?: No MRSA MRSA: Yes Medications Active Scripts Doxycycline Monohyd 100 Mg Oyrmcyl214 Mg PO BID #24 CAPSULE Ref 0 Prov:Festus Asencio MD 06/21/17 Reported Medications Ibuprofen 200 Mg Opzuztk258 Mg PO QID PRN For Pain Ref 0 06/25/17 Methadone 10 Mg Tab70 Mg PO QAM Ref 0 06/25/17 Discontinued Scripts Amoxicillin/Clav K ER 1000-62.5 mg (Augmentin XR 1000-62.5 mg)1 Each Tab.er.12h1 Tablet PO BID #20 TABLET Ref 0 Prov:Rubén Smiley MD 06/02/17 Sulfamethoxazole/Trimeth 800-160 mg (Bactrim DS)1 Each Tablet1 Tablet PO BID # 20 TABLET Prov:Harsha Yen MD 11/27/16 Ciprofloxacin 500 Mg Eggaks821 Mg PO BID 7 Days Prov:Devon Palacio MD 07/15/16 Metronidazole (Flagyl)500 Mg Nknkkr721 Mg PO BID 14 Days Prov:Devon Palacio MD 07/15/16 Doxycycline Monohyd 100 Mg Kpddraw295 Mg PO BID 14 Days Ref 0 Prov:Devon Palacio MD 07/15/16 History History of ENT Problems?: No HEENT History: Positive for:: Sinus Problem (Seasonal Allergies) Denture Type: None Teeth Condition: Missing Teeth Hx of Heart Problems?: No Cardiovascular History: Denies:: Cardiac Surgery Chest Pain Congestive Heart Failure Hypertension Irregular Heartbeat Pacemaker Thrombophlebitis Hx of Respiratory Problem?: Yes Respiratory History: Positive for:: Asthma (Childhood) Denies:: COPD Chest Surgery Dyspnea Emphysema Hemoptysis Pneumonia Tuberculosis Hx Neurologic Problems?: No Neurological History: Denies:: Alzheimer's Disease CVA Dementia Dizziness Headaches Parkinson's Disease Seizures Hx of GI Problems?: Yes Hx of Problems?: Yes Genitourinary History: Positive for:: Urinary Tract Infection (Recurrent) Denies:: HX of Hemodialysis Kidney Stones HX of Peritoneal Dialysis: No Female Hx: Positive for:: Currently (Lab test in ED came back neg.) Denies:: Endometriosis Pelvic Inflammatory Problems with Breasts? Other Skin Pertinent History: Prior abcesses Hx Musculoskeletal Problems?: No Musculoskeletal History: Denies:: Back Injury Joint Replacement Musculoskeletal Trauma Hx of Psycho/Social Problems?: Yes Psycho Social History: Positive for:: Anxiety Bipolar Disorder Hx Depression Denies:: Suicide Attempt Hx Surgeries?: Yes (c-sectx2) Hx Any Other Health Problems?: No Other History: Positive for:: Hospitalization ([facility]) Denies:: Cancer Endocrine Disease Thyroid Disease History Blood Transfusions: Positive for:: Accept Blood Products? Denies:: Blood Transfuse Reaction Blood Transfusions Hx Diabetes: No Hx Alcohol Use: YesHx Substance Use: Yes (hx of herion and meth) Smoking Status: Current Every Day Smoker Have You Smoked inLast 12 mo: YesApprox How Many Cigarettes/day: 1 pack Stop/Bang Treated for Sleep Apnea?: No Do You Have a CPAP Machine?: No S-Snoring: Do You Snore Loudly: No T-Tired: feel tired, fatigued: No O-Obsered: Observed not breath: No P-Blood Pressure: treated: No B- Body Mass Index > 35 kg/m2: No A- Age over 50: No N- Neck Large Circumference: No G- Gender Male: No JUDITH Total Score: 0 JUDITH Risk Assessment: Low Risk, <3 Yes Risk Assessment Category Category 1A: Patient has history of documented sleep apnea, and HAS NOT received any narcotic, sedative or anesthesia administration during this stay. Category 1B: Patient has history of documented sleep apnea, and HAS received any narcotic , sedative or anesthesia administration during this stay Category 2: Patient has SUSPECTED Obstructive Sleep Apnea, and HAS received any narcotic , sedative or anesthesia administration during this stay. Category 3: Patient has SUSPECTED Obstructive Sleep Apnea and HAS NOT received narcotic, sedative or anesthesia administration during this stay. Category 4: Outpatient in Procedural Areas with known sleep apnea or who screen positive for High Risk via the STOP/BANG questionnaire. Exam Exam Vital Signs Vital Signs Date Time Temp Pulse Resp B/P Pulse Ox O2 Delivery O2 Flow Rate FiO2 06/26/17 14:46 36.3 82 16 101/60 93 Room Air 06/26/17 09:34 36.2 84 20 101/66 99 Room Air General Appearance: Alert, Oriented X3, Cooperative, No Acute Distress HEENT/AIRWAY: MP 2 Lungs: Clear to Auscultation, Normal Air Movement Heart: Exam Unremarkable, Regular Rate/Rhythm, No Murmurs/Rubs/Gallops Meds/Labs/Diagnostics Admission Meds Current Medications Pharmacy Consult 1 ea 1 ea ONCE ONCE XX Last administered on 06/25/17 23:35; Start 06/25/17 at 21:40; Stop 06/25/17 at 21:45; Status DC Sodium Chloride 1,000 ml @ 0 mls/hr Q0M ONCE IV Last administered on 23:00; Start 06/25/17 at 21:39; Stop 06/25/17 at 21:43; Status DC Vancomycin HCl/ Sodium Chloride (Vancocin Inj/ Normal Saline) 500 ml @ 333.333 mls/hr ONCE ONCE IV Last administered on 06/25/17 23:34; Start 06/25/17 at 21 :50; Stop 06/25/17 at 23:19; Status DC Hydromorphone HCl (Dilaudid Inj) 1 mg STK-MED ONCE .ROUTE Last administered on 06/25/17 22:38; Start 06/25/17 at 22:32; Stop 06/25/17 at 22:33; Status DC Diphenhydramine HCl (Benadryl Inj) 25 mg ONCE ONCE IVPUSH Last administered on 06/25/17 23:35; Start 06/25/17 at 23:05; Stop 06/25/17 at 23:06; Status DC Ketorolac Tromethamine 30 mg 30 mg ONCE ONCE IVPUSH Last administered on 23:35; Start 06/25/17 at 23:05; Stop 06/25/17 at 23:06; Status DC Piperacillin Sod/ Tazobactam Sod 3.375 gm/Dextrose/ Water 50 ml @ 100 mls/hr ONCE ONCE IV Last administered on 06/26/17 02:20; Start 06/26/17 at 02:00; Stop 06/26/17 at 02:29; Status DC Piperacillin Sod/ Tazobactam Sod 3.375 gm/Dextrose/ Water 50 ml @ 12.5 mls/hr Q8H IV Last administered on 06/26/17 11:12; Start 06/26/17 at 11:00 Vancomycin HCl/ Sodium Chloride (Vancocin Inj/ Normal Saline) 250 ml @ 166.667 mls/hr Q6H IV Last administered on 06/26/17 11:12; Start 06/26/17 at 05:00 Labs Test 06/25/17 23:20 06/26/17 05:30 Erythrocyte Sedimentation Rate 1mm/hr (0-32) Lactic Acid Level 0.9mmol/L (0.4-2.0) C-Reactive Protein 6.3mg/dL (0.0-0.5) Human Chorionic Gonadotropin, Qual Negative (Negative) White Blood Count 7.4th/mm3 (3.8-10.1) Red Blood Count 3.92mil/mm3 (3.90-5.20) Hemoglobin 10.0g/dL (12.0-15.6) Hematocrit 30.6% (35.0-46.0) Mean Corpuscular Volume 78.1fL (81-100) Mean Corpuscular Hemoglobin 25.5pg (27.0-35.0) Mean Corpuscular Hemoglobin Concent 32.7% (32.0-37.0) Red Cell Distribution Width 13.8% (12.3-15.4) Platelet Count 192bil/L (150-400) Neutrophils (%) (Auto) 68.7% (40-74) Lymphocytes (%) (Auto) 22.2% (14-46) Monocytes (%) (Auto) 8.2% (4-12) Eosinophils (%) (Auto) 0.7% (0-5) Basophils (%) (Auto) 0.1% (0-3) Sodium Level 139mEq/L (134-144) Potassium Level 4.1mEq/L (3.5-5.2) Chloride Level 105mEq/L (97-108) Carbon Dioxide Level 23mmol/L (18-29) Blood Urea Nitrogen 5mg/dL (6-20) Creatinine 0.46mg/dL (0.57-1.00) Estimat Glomerular Filtration Rate 241mL/min (>59) Glucose Level 101mg/dL (60-99) Calcium Level 8.1mg/dL (8.5-10.1) Iron Level 14ug/dL (35-150) Total Iron Binding Capacity 216ug/dL (250-450) Percent Iron Saturation 6%sat (15-50) Unsaturated Iron Binding 201.9ug/dL Total Bilirubin 0.2mg/dL (0.0-1.2) Aspartate Amino Transf (AST/SGOT) 23U/L (0-50) Alanine Aminotransferase (ALT/SGPT) 19U/L (0-32) Alkaline Phosphatase 106U/L (25-150) Total Protein 5.6g/dL (6.4-8.4) Albumin 3.1g/dL (3.4-5.0) Plan Impression Patient chart reviewed, patient interviewed and anesthestic plan with risks, benefits, and alternatives discussed, and informed consent obtained. NPO per Anesth. Guidelines: Yes ASA Physical Status: ASA2 Plus Emergency Anesthetic Plan: GA (RSI) Bene/Risks/Altern/Consents: Yes HP Complete Prior to Induction: Yes Dom Strong DO Jun 26, 2017 16:05
[2017-06-26] MEDS ORDERED: Bupivacaine 0.5% 50 mL Inj IV ONE (16:21)
[2017-06-26] MEDS: fentaNYL-PF 50 mCg/mL 2 mL Inj ONE ×2 (16:23→16:29)
[2017-06-26] MEDS ORDERED: Lactated Ringer's 500 ML IV PRN (16:27)
[2017-06-26] MEDS ORDERED: Lactated Ringer's 1,000 ML IV SCH (16:27)
[2017-06-26] MEDS ORDERED: HYDROmorphone 1 mg/mL Inj IVPUSH PRN (16:30)
[2017-06-26] MEDS ORDERED: Phenylephrine 10,000 mCg/mL Inj IVPUSH PRN (16:30)
[2017-06-26] MEDS ORDERED: Ondansetron 2 mg/mL 2 mL Inj IVPUSH PRN (16:30)
[2017-06-26] MEDS ORDERED: MetoCLOpramide 5 mg/mL 2 mL Inj IVPUSH PRN (16:30)
[2017-06-26] MEDS ORDERED: fentaNYL-PF 50 mCg/mL 2 mL Inj IVPUSH PRN (16:30)
[2017-06-26] MEDS ORDERED: EPHEDrine Sulfate 50 mg/mL Inj IVPUSH PRN (16:30)
--- NOTE | 2017-06-26 16:31 | PCM.ANEP1 ---
Post Anesthesia PACU Phase 1 Assessment Date of Service: Jun 26, 2017 Vital Signs Vital Signs Date Time Temp Pulse Resp B/P Pulse Ox O2 Delivery O2 Flow Rate FiO2 06/26/17 16:25 77 14 111/64 99 Room Air 06/26/17 16:20 79 14 115/68 100 Simple Mask 8 06/26/17 16:16 36 83 15 107/63 100 Simple Mask 10 06/26/17 14:46 36.3 82 16 101/60 93 Room Air 06/26/17 09:34 36.2 84 20 101/66 99 Room Air Level of Alertness: Sleepy, easy to arouse KENNEDY's with Equal Strength: Yes Pain: Yes Pain Scale Score: 5 Nausea or Vomiting: No CV Function & Hydration Stable: Yes Airway Device: Oxygen Delivery: Room Air, Simple Mask Lungs: Clear to Auscultation, Normal Air Movement Dermatome Level: Full Sensation PACU Phase 2 Assessment Complications: No Patient Instructions Provided: N/A Dom Strong DO Jun 26, 2017 16:31
--- NOTE | 2017-06-26 16:53 | CONS ---
[address] [address] CONSULTATION REPORT PATIENT: ABDIAS WYATT : 1995 MR#: [id number] ADMIT: 06/25/2017 JOB ID: [id number] DATE OF SERVICE: 06/26/2017 REASON FOR CONSULTATION: Dr. Gibbs has asked me to see this 21-year-old female with left thigh abscess. HISTORY OF PRESENT ILLNESS: The patient has a history of IV drug use, known hepatitis C, previous subcutaneous abscesses secondary to her drug use. She has been on methadone, has had three weeks relapse, and was seen in the emergency department five days ago with an I and D, and then was discharged with p.o. antibiotics. She returns with increasing reported left thigh cellulitis and fevers and chills. Bedside ultrasound in the ED demonstrated subcutaneous edema but no drainable fluid. I am asked to see her this morning for consideration of incision and drainage. PAST MEDICAL HISTORY: As above. MEDICATIONS: None. ALLERGIES: None. FAMILY HISTORY/SOCIAL HISTORY/REVIEW OF SYSTEMS: Noncontributory. PHYSICAL EXAMINATION: Pleasant woman in no acute distress with a right neck central line. She is afebrile. Her vital signs are within normal limits. Directed examination shows that in an area close to the previous incision, drainage that is lateral thigh versus anterior hip. There is a posterior small incision without purulent drainage but anterior to this the thigh is quite red and tender. LABORATORY DATA: Her white count was 7.4 last night, her hematocrit is 30. Chemistries were relatively unremarkable. Iron studies show that she has iron-deficiency anemia. IMPRESSION AND PLAN: Clinically, this has the appearance of an abscess despite the imaging last night. I think that we should take this to the OR and drain this. I think reimaging has limited value. The patient ate breakfast at 9:30, and we will therefore do this in the main OR at 3:30 today. The patient agrees to proceed.
--- NOTE | 2017-06-26 18:20 | OP ---
[address] [address] OPERATIVE REPORT PATIENT: ABDIAS WYATT : 1995 MR#: [id number] ADMIT: 06/25/2017 JOB ID: [id number] DATE OF SURGERY: 06/26/2017 PREOPERATIVE DIAGNOSIS(ES): Left lateral thigh abscess POSTOPERATIVE DIAGNOSIS(ES): Left lateral thigh abscess PROCEDURE: Incision and drainage of left lateral thigh abscess, deep. SURGEON: Otto Meyers MD. INDICATIONS: A 21-year-old female with right lateral thigh abscess. FINDINGS: Right lateral thigh abscess, as described below. DESCRIPTION OF PROCEDURE: The patient brought to the operating room. SCOAP protocol was followed. General anesthetic was administered. The left hip and thigh was prepped and draped in sterile fashion. I made a longitudinal incision over the area of maximal redness and induration. I carried the incision down through the skin well into the subcutaneous fat. Hemostasis was achieved. I then had to pop into the deep space bluntly and then widen that incision with a clamp. Chocolate covered, [id number] pus came out of that wound. We cultured this and sent it off for Gram stain and culture. I now suctioned out all the pus from this wound, irrigated it out. Patient had a relatively deep cavity that was going anteriorly and made a counter incision on the medial aspect of this that was slightly smaller. Hemostasis was achieved. We punched into the abscess cavity. We now irrigated the abscess cavity with a copious amount of sterile saline. I then obtained hemostasis of the wound edges. I placed a 0.5 inch Dejan drain between the two incisions and sutured the drain to itself. I packed the wound with Iodoform gauze. Dressing was applied. The patient was extubated at the time of this dictation and is being transferred to the recovery room. The plan will be to have local dressing changes, and I will leave the Dejan drain in for one week and remove this in the office in followup.
--- NOTE | 2017-06-26 18:42 | NUR ---
Post op Pt arrived back on unit 1510 on [facility]. Dressing is ABD with Kerlix over and is CDI. Pt stating she is 10/10 pain and thigh is burning. Pain medications given. Pt eager to eat and given water and crackers. IV antibiotics started. Pt on RA, VSS, KENNEDY, A&O x 3. Able to get up to BR using FWW with assistance, but unable to bear weight on leg due to pain. Advised pt to call for assistance before getting up due to pain and connection to IV pole. Bed in low, call light in reach, care continues.
[2017-06-26] MEDS ORDERED: Vancomycin Serum Trough XX ONE (22:30)
[2017-06-27] MEDS: Heparin 5,000 Unit/mL Inj SUBQ SCH ×5 (00:30→16:41)
--- NOTE | 2017-06-27 01:05 | PCM.PHAPRO ---
Progress Date of Service: Jun 27, 2017 Requesting Provider: Sera Ortiz DO worsening pain on thigh Abscess a/ - Patient received I&D late today. Blood cultures showed no growth over 24hrs - All Vancomycin doses (750mg iv q6h) given on time and trough drawn appropriately; however trough result was low @8.4. - The tonight dose was already given. Will increase to 1000mg iv q6h, starts next dose @0500 06/27; and trough level ordered @2230 06/27 Pharmacy will continue to monitor daily Thank you Martell Ewing Jun 27, 2017 01:05
[2017-06-27] MEDS: Piper-Tazo 3.375 Gm/50 mL D5W Minibag Plus - Q8H over 4 hrs IV SCH ×4 (03:20→11:00)
--- NOTE | 2017-06-27 05:18 | NUR ---
Left thigh dressing Pt is alert and drowsy and easily arouse. Pain well controlled on this shift with PRN dilaudid and Toradol. Dressing on left thigh came out loose with sero-sanguineous noted. Astor drainage intact. Dressing reinforce by applying a new ABD pad and wrapped with Kerlix. Dressing intact and pt asleep at this current moment. Tolerating IV vanco and zosyn so far with no ASE noted. Will continue to monitor.
[2017-06-27 05:31] VITALS: BP 101/62; PULSE 70; RESP 17; O2SAT 96
[2017-06-27] MEDS: Vancomycin Inj 1,000 MG in IV Premix 1 EACH IV SCH ×4 (05:47→23:10)
[2017-06-27] MEDS: HYDROmorphone 1 mg/mL Inj IVPUSH PRN (05:48)
[2017-06-27] MEDS: Vancomycin Dose per Pharmacist XX SCH (08:04)
--- NOTE | 2017-06-27 10:55 | PCM.PNSURG ---
Subjective Date of Service: Jun 27, 2017 Visit Information: Reason for Visit Left Thigh Cellulitis, Abscess Surgery/Surgery Date Post-Op Day # Date of Admission: Jun 25, 2017 at 21:47 Hospital Day # Subjective: No acute overnight events Pain improved from pre-op Denies fevers No other complaints Objective Vital Sign- Last 8 Hours Date Time Temp Pulse Resp B/P Pulse Ox O2 Delivery O2 Flow Rate FiO2 06/27/17 05:31 36.6 70 17 101/62 96 Room Air Intake and Output- Last 8 Hour 06/27/17 Cumulative From/Thru 07:00 06/25/17 20:13 - 06/27/17 05:31 Intake Total 450 ml 3335 ml Output Total 850 ml 2850 ml Balance -400 ml 485 ml Intake Oral 450 ml 1668 ml IV Total 1667 ml Output Urine Total 850 ml 2850 ml # Bowel Movements 0 General: Alert, Oriented X3, No Acute Distress Neck: Supple Lungs: Normal Air Movement Abdomen: Benign SURGICAL WOUND : Wound Location/Description Left thigh incision x2 with looped randall has serosanguinous drainage. Surrounding cellulitis improving, still exquisitely tender to the touch. No purulence appreciated. Result Diagram: 06/26/17 0506/26/17 0530 Assessment & Plan Impression 21F who is an IVDU and is now POD#1 s/p I&D of left thigh abscess Problems: Plan - Packing from wound removed on rounds today - [facility] shoud remain in place - Keep wound clean and dry with ABD - Wound care consult - Abx and rest of care per primary team VTE Prophylaxis: Sub-Q Heparin (Unfractionated) Resuscitation Status: CPR: Attempt Resuscitation Ferny Peres MD Jun 27, 2017 10:55
--- NOTE | 2017-06-27 11:28 | NUR ---
Transfer care of patient To Jessica Porras RN at this time. Report given.
--- NOTE | 2017-06-27 11:34 | PCM.PNMED ---
Subjective Date of Service Jun 27, 2017 Subjective Sleeping, arouses to voice, gives brief answers to questions mostly shrugs and head nod or shake. Indicates the oxycodone 10 mg yesterday was not effective for her pain. Exam Vital Signs Vital Sign - Last Date Time Temp Pulse Resp B/P Pulse Ox O2 Delivery O2 Flow Rate FiO2 06/27/17 05:31 36.6 70 17 101/62 96 Room Air 06/26/17 16:20 8 Intake and Output 06/26/17 06/26/17 06/27/17 Cumulative From/Thru 15:00 23:00 07:00 06/25/17 20:13 - 06/27/17 05:31 Intake Total 1359 ml 450 ml 3335 ml Output Total 1200 ml 850 ml 2850 ml Balance 159 ml -400 ml 485 ml Intake Oral 818 ml 450 ml 1668 ml IV Total 541 ml 1667 ml Output Urine Total 1200 ml 850 ml 2850 ml # Bowel Movements 0 0 Exam General: Sleeping, arouses easily to voice, no acute distress Heart: Regular Lungs: Clear anteriorly and laterally Abdomen: Soft, non-tender Extremities: No pedal edema, left thigh dressing changed and repacked this morning by surgery IVs and Medications Medications Reviewed: Medications were reviewed in detail Lab and Diagnostics Result Diagram: 06/26/1752906/26/1730 Assessment & Plan 21yoF with history of IVDU, hepatitis C, MRSA abscesses admitted due to outpatient failure of treatment of cellulitis s/p I&D Left thigh abscess, acute, POA -abscess drained by ED then failed outpatient treatment with keflex -given ceftriaxone / vancomycin in ED, then piperacillin/tazobactam and vancomycin (pharmacy to dose) on admission - Incision and drainage of left lateral thigh abscess, deep. by Dr Meyers Jun 26 - wound culture from Jun 26 with [facility] so will DC Zosyn - history of MRSA associated infection, contact precautions - IV Dilaudid started yesterday when patient threatened to leave AMA without it prior to her incision and drainage but now that needed procedure done can DC this and just use oral oxydone (will increase dose to 15 mg) and IV toradol which is more appropriate given her history of herion abuse Hx Herion abuse -patient is currently on methadone (per her report at 70 mg daily) with recent relapse - as above, will also try to confirm her methadone dose with her provider/clinic Microcytic anemia, stable this morning compared to admission - Obtain iron panel Thrombocytopenia, acute, POA, resolved -unclear etiology -in normal range the day following admission GI Prophylaxis: Not indicated VTE Prophylaxis: Sub-Q Heparin (Unfractionated) Resuscitation Status: CPR: Attempt Resuscitation Charis Gibbs MD Jun 27, 2017 11:34
[2017-06-27] MEDS: oxyCODONE 1 mg/mL 5 mL Liquid PO PRN ×2 (12:53→23:46)
--- NOTE | 2017-06-27 13:01 | NUR ---
Methadone Dose Verified with [facility] [address] [place] [address] Pt does get Methadone 70mg Q Day. notified.
[2017-06-27 13:35] VITALS: BP 107/66; PULSE 68; RESP 12; O2SAT 97
--- NOTE | 2017-06-27 14:06 | PCM.PHAPRO ---
Progress Date of Service: Jun 27, 2017 worsening pain on thigh Methadone Dose Confirmation: I confirmed with Dano MICHELE from [facility] tel that patient is taking methadone 70 mg PO daily. Thank You, Ashlyn Jacob, Pharm D. Ashlyn Jacob Jun 27, 2017 14:06
--- NOTE | 2017-06-27 15:24 | NUR ---
Assumed care: Assumed care from Jessica Porras pt currently in shower
[2017-06-27 16:29] VITALS: BP 103/62; PULSE 72; RESP 16; O2SAT 99
[2017-06-27] MEDS ORDERED: Sodium Chloride LOK Flush 10 mL Syringe IVFLUSH PRN ×2 (16:30)
--- NOTE | 2017-06-27 17:06 | NUR ---
Social Work- Initial Assessment Data: See Initial Assessment for additional information. Pt is a 21 year old female admitted 06/25/17 for left thigh cellulitis, abscess per H&P. Pt's insurance is [employer]. Pt has no PCP. Pt's readmit risk score is 3/8 high risk. Pt discussed in multidisciplinary rounds. Pt is an active IVDU, Substance Abuse assessment order acknowledged. Pt may require outpt wound care. Wound Care has not seen patient. SW met with pt at bedside to complete initial assessment, SW role explained. Pt alert and oriented x3. Pt resides in [place] with her ex-boyfriend (and children's father) and his mother. Pt is not a caregiver as her children (boys ages 3 and 6) are not living with her. Pt does not drive and her transportation is primarily by bus. Pt is independent at baseline with ADLs and self-care. Pt is not employed. Pt goes to the methadone clinic every morning Tuesday through Tuesday. Pt's mother in law drives her to the bus station to come to [place] for the methadone clinic. Pt declined DPOA resources, no DPOA on file. Pt and GROCERY CLERK discussed resources that would be helpful to pt after admission- items include employment resources, MH resources, health clinic resources, and CD resources. Pt is connected with [facility] (see CD assessment note for additional information). Resources provided to pt at bedside. SW discussed pt obtaining a PCP. Pt is agreeable and would like to have one- is interested in [facility]. Contact information provided. Pt declined d/c planning checklist at bedside. Pt likely to d/c home with her ex-boyfriend to transport via POV. SW wrote plan and phone number on [employer]. SW will follow for additional d/c planning needs. Assessment: Pt who is independent at baseline with ADLs and self-care. Plan: Pt is likely to d/c home with ex-boyfriend to transport via POV. SW will follow for additional d/c planning needs. RADHA Godinez Addendum: 06/27/17 at 1710 by BROOKE OG SS Amended: Links added.
--- NOTE | 2017-06-27 17:10 | NUR ---
Social Work- Chemical Dependency Assessment Current Circumstances/Reason for Referral: EMR reviewed. Pt is a 21 year old female admitted for leg thigh cellulitis, abscess per H&P. Pt is an active IVDU, last use 5-7 days prior to admission. SW saw pt to complete chemical dependency assessment. Pt alert and oriented x3, pleasant and willing to talk. History of Substance Use: Pt reports using IV heroin almost daily for the last 8 years, with two periods of sobriety during her pregnancies. Pt smokes meth as well, reported 2-3 times weekly. Pt reports that she has not consumed etoh in the last 3-4 years except occasionally as it makes her nauseas. However, began drinking at the age of 11. History of Treatment Programs: Pt has completed an assessment for treatment through [facility]. Pt is enrolled in classes through [facility] from 6-9 pm but transportation has been a barrier. Pt is on a waitlist for earlier classes so that she does not have to get transportation home at 9 pm. Pt did not report any inpt tx history. Pt is currently receiving methadone through an outpt clinic. Goes every morning Tuesday-Tuesday. History of Withdrawal Symptoms: Pt reports she does not withdraw from meth. However she describes her heroin withdrawal symptoms as "intolerable." This has been a barrier to her sobriety as withdrawing is so unpleasant that she avoids it. Pt experiences muscle cramps, runny nose, watery eyes, anxiety, restless legs, diarrhea, stomach cramps, chills, and hot flashes. Family History: Pt reports that her grandpa and cousins have substance use history. Pt's sister was addicted to "dope", though she is reportedly clean at this time. History of Sobriety and Supports: Pt has experienced two periods of sobriety (excluding MH medications and methadone) in the last 8 years. Both periods occurred during pt's pregnancies 6 years ago and 3 years ago. Pt reports using methadone during her pregnancies with her doctor's supervision. Pt did not use any additional drugs at that time. Pt confirms that her pregnancies were huge motivators for her to be sober. Pt could not identify any supports at this time as pt's MIL and ex-boyfriend are not good emotional supports. Pt is hoping to move out of her exes home but she has nowhere else to go at this time. Pt's lack of support is a barrier to her sobriety at this time. Pt is hopeful that her sober support network will increase once she gets a job. Pt's counselor at [facility] is a support to her and she is also hopeful that she will feel supported through her classes at [facility] once she can get into morning classes vs. 6-9 pm. Patient's Perception of Use- Pt acknowledges that her use is problematic and she is motivated to change her use. Pt is hopeful that through [facility] she will attain sobriety. Pt is actively involved with [facility] at this time. Pt is agreeable to continue to work with [facility] and continue to go to the methadone clinic as an outpt. Mental Health-- Pt reports history of depression, anxiety, and bipolar. Pt denies any medication related to managing these diagnoses. Pt denies any active SI or HI at this time. Recommendation for Referral and Follow Up- Pt to continue to work with [facility] services (counselor and classes) on an outpt basis. Pt is working to obtain employment and better her social situation so she is able to distance herself from friends that use drugs. Pt agreeable to CD and MH resources provided at bedside. Pt confirms her ex boyfriend will pick her up at d/c. RADHA Godinez
[2017-06-27 19:35] VITALS: BP 122/65; PULSE 80; RESP 16; O2SAT 98
[2017-06-28] MEDS: Heparin 5,000 Unit/mL Inj SUBQ SCH ×3 (00:30→16:09)
[2017-06-28] MEDS ORDERED: Vancomycin Serum Trough XX ONE (04:30)
[2017-06-28 04:40] VITALS: BP 109/70; PULSE 76; RESP 16; O2SAT 95
--- NOTE | 2017-06-28 05:47 | NUR ---
IV site Pt's Internal jugular IV catheter in place with three lumens. received on report the red lumen IV catheter is clogged and not flushing. This LN assessed IJ IV site and catheter and attempted to flush red lumen but encounter resistance. RN charged nurse was notified and this LN also called IV therapy and left a voice message to follow up when they come to shift. The white and blue lumen IV catheter, patent and flush with no concerns. Pt denies any pain upon IJ IV assessment and dressing is C/D/I. Will continue to monitor.
[2017-06-28] MEDS: Vancomycin Inj 1,000 MG in IV Premix 1 EACH IV SCH ×2 (06:19→11:39)
[2017-06-28 06:52] LABS: BASOPHILS % (AUTO) 0.2 % (0-3); EOSINOPHILS % (AUTO) 0.6 % (0-5); MONOCYTES % (AUTO) 6.6 % (4-12); Mean Corpuscular Hemoglobin 25.4 pg (27.0-35.0); Mean Corpuscular Volume 79.8 fL (81-100); NEUTROPHILS % (AUTO) 46.8 % (40-74); Platelet Count 214 bil/L (150-400)
[2017-06-28] MEDS: oxyCODONE 1 mg/mL 5 mL Liquid PO PRN ×3 (07:29→17:58)
--- NOTE | 2017-06-28 07:34 | PCM.PNMED ---
Subjective Date of Service Jun 28, 2017 Subjective No complaints, adequate pain control. Exam Vital Signs Vital Sign - Last Date Time Temp Pulse Resp B/P Pulse Ox O2 Delivery O2 Flow Rate FiO2 06/28/17 04:40 36.9 76 16 109/70 95 Room Air 06/26/17 16:20 8 Intake and Output 06/27/17 06/27/17 06/28/17 Cumulative From/Thru 15:00 23:00 07:00 06/25/17 20:13 - 06/28/17 05:55 Intake Total 236 ml 1922 ml 5493 ml Output Total 200 ml 1300 ml 4350 ml Balance 36 ml 622 ml 1143 ml Intake Oral 236 ml 1672 ml 3576 ml IV Total 250 ml 1917 ml Output Urine Total 200 ml 1300 ml 4350 ml # Voids 2 2 # Bowel Movements 0 0 Exam General: Alert and oriented, no acute distress Heart: Regular Lungs: Clear Abdomen: Soft, non-tender Extremities: No pedal edema, dressing on left thigh. IVs and Medications Medications Reviewed: Medications were reviewed in detail Lab and Diagnostics Result Diagram: 06/28/17 0645 06/26/17 0530 Assessment & Plan 21yoF with history of IVDU, hepatitis C, MRSA abscesses admitted due to outpatient failure of treatment of cellulitis s/p I&D Left thigh abscess, acute, POA - history of MRSA associated infection, contact precautions -abscess drained by ED several days [facility] then failed outpatient treatment with keflex -given ceftriaxone / vancomycin in ED, then piperacillin/tazobactam and vancomycin (pharmacy to dose) on admission - Incision and drainage of left lateral thigh abscess, deep. by Dr Meyers Jun 26 - wound culture from Jun 26 with [facility] on gram stain so DC'd Zosyn Jun 27 - IV Dilaudid started Jun 26 when patient threatened to leave AMA without it prior to her incision and drainage but DC'd day after procedure - now oral oxydone increased dose to 15 mg Jun 27 because 10 mg not effective) and IV toradol which is more appropriate given her history of herion abuse Hx Herion abuse with recent relapse -patient is currently on methadone at 70 mg daily (confirmed with her outpt clinic) Microcytic anemia, stable this morning compared to admission - iron panel with significantly low iron and percent saturation (although TIBC also low) - We will begin some oral iron, initially one tablet daily then increase as tolerated Thrombocytopenia, acute, POA, resolved -unclear etiology -in normal range the day following admission GI Prophylaxis: Not indicated VTE Prophylaxis: Sub-Q Heparin (Unfractionated) Resuscitation Status: CPR: Attempt Resuscitation Charis Gibbs MD Jun 28, 2017 07:34
--- NOTE | 2017-06-28 07:56 | PCM.PNSURG ---
Subjective Date of Service: Jun 28, 2017 Date of Service: Jun 28, 2017 Visit Information: Reason for Visit Left Thigh Cellulitis, Abscess Surgery/Surgery Date Post-Op Day # 2 Status post incision and drainage of left thigh lateral abscess Date of Admission: Jun 25, 2017 at 21:47 Hospital Day # Subjective: No significant overnight events excluding IV Therapy required for IJ IV site. Patient is exquisitely tender with dressing change but denies overall worsening pain & fever, or chills. She is feeling better since surgery. Gastrointestinal: Tolerating Oral Feedings, No N/V Pain Management: Good Pain Control Postop Activity: Ambulating Independently Objective Vital Sign- Last 8 Hours Date Time Temp Pulse Resp B/P Pulse Ox O2 Delivery O2 Flow Rate FiO2 06/28/17 04:40 36.9 76 16 109/70 95 Room Air Intake and Output- Last 8 Hour 06/28/17 Cumulative From/Thru 07:00 06/25/17 20:13 - 06/28/17 05:55 Intake Total 1922 ml 5493 ml Output Total 1300 ml 4350 ml Balance 622 ml 1143 ml Intake Oral 1672 ml 3576 ml IV Total 250 ml 1917 ml Output Urine Total 1300 ml 4350 ml # Voids 2 # Bowel Movements 0 0 General: Alert, Cooperative, No Acute Distress Lungs: Clear to Auscultation Heart: Exam Unremarkable Abdomen: Benign SURGICAL WOUND : Wound Location/Description Incision & counter incision with Dejan drain, without drainage, & resolving erythema & induration. Dressing & Drainage Status: Dressing Removed Extremities: Thigh&Calf Soft/Nontender Result Diagram: 06/28/17 0645 06/26/17 0530 Assessment & Plan Impression Primary Diagnosis: 1. Left lateral thigh abscess 2. Status post incision and drainage of left lateral thigh cellulitis & abscess (deep) - Currently stable from General Surgery standpoint & consider sign off pending culture results (Will need to follow-up with wound clinic outpatient). 3. History of multiple MRSA abscesses Other Medical & Surgical History: Pyelonephritis Bipolar Hepatitis C Anxiety Gonorrhea Chlamydia Asthma Depression IV drug abuse (heroin & methamphetamines) Hx osteomyelitis of R wrist Surgical History I&D R arm abscess Daily cigarette smoker Problems: Plan 1. Continue antibiotics. 2. Repeat WBC prn fever 3. Appreciate wound care consultation 4. Change dressing daily or when necessary 5. Pain control per attending hospitalist team 6. Consider ID consult pending culture results? VTE Prophylaxis: Sub-Q Heparin (Unfractionated) Resuscitation Status: CPR: Attempt Resuscitation Brandon Cassidy PA-C Jun 28, 2017 07:56
[2017-06-28] MEDS: Vancomycin Dose per Pharmacist XX SCH (08:30)
[2017-06-28] MEDS: diphenhydrAMINE 25 mg Capsule PO PRN ×2 (09:12→17:57)
[2017-06-28] MEDS ORDERED: 0.9% Sodium Chloride 250 ML ONE (11:32)
--- NOTE | 2017-06-28 11:47 | NUR ---
Inpatient Wound Nurse Patient seen for L lateral thigh abscess. Wound tissue visualized is beefy red and granuatling, Dejan drain is patent with small amount of serosanguinous drainage noted on (non-absorbent) side of ABD. No signs of active infection in periwound skin, although very light and gentle palpation to entire site elicits shrieks and anxiety from patient. Periwound skin is pink and warm, no areas of puckering or excessive tension, firmness, or bogginess. Periwound skin was cleansed to extent patient would tolerate and swabbed with skin prep to protect from drainage. Wound was covered with bordered sacral Mepilex dressing with silicone facing. Patient stated that wrapping leg with Kerlix "is such a hassle" and catches on clothing. Patient also stated that she is "freaked-out" at sight of wound. This bordered Mepilex dressing is skin-colored and smooth on all sides, which should decrease visual trigger of anxiety. If drainage dries on the dressing, the silicone facing should decrease pain with removal. The dressing is designed to be peeled away for wound inspection, and then pressed back into place if desired. Nursing staff may change dressing as often as needed, although if clean and dry, it may stay in place 3 to 5 days. CWON will see patient tomorrow and teach home wound care if patient agreeable.
--- NOTE | 2017-06-28 12:06 | NUR ---
IJ Found IJ red lumen without a clave but clamped. Pt stated that yesterday after her shower, her SO "put on gloves and hooked me back up to my IV, maybe something happened then." Educated pt that no one except nursing should use the IV line, tubing and pump. Pt agrees. IV therapy informed.
[2017-06-28 13:08] VITALS: BP 103/66; PULSE 69; RESP 18; O2SAT 98
--- NOTE | 2017-06-28 17:39 | CONS ---
[address] [address] CONSULTATION REPORT PATIENT: ABDIAS WYATT : 1995 MR#: [id number] ADMIT: 06/25/2017 JOB ID: [id number] DATE OF SERVICE: 06/28/2017 REASON FOR CONSULTATION: Left thigh abscess secondary to strep milleri bacteria. I thank Dr. Gibbs for this timely consult. HISTORY OF PRESENT ILLNESS: The patient is a 21-year-old injection drug user whom I know from a prior admission a couple of years ago when she had a serious soft tissue infection. The patient also is said to suffer from hepatitis C which she says has been evaluated at [facility] ([place], [place]) though we do not have any details or confirmation of that. She has also had issues with urinary tract infections in the past. The patient reported that she developed left thigh swelling, tenderness and pain along with some fever and chills about three weeks ago after injection use of heroin. She originally sought evaluation and was initially seen in the emergency department for this process and as part of her treatment she had an abscess drained in the emergency department on June 20, and she was given a prescription for oral antibiotics though the emergency department notes are very confusing as to which antibiotic she was discharged with but, nonetheless, she was given oral antibiotics following her I and D and was sent home at that time. The patient reported that despite compliance with the unknown oral antibiotic that her leg steadily worsened and, for that reason, she was evaluated and readmitted to this hospital late on the /early on the morning of the by Dr. Ortiz. At that time, the patient was readmitted and sent to the operating room for drainage. Notes indicate that her outpatient antibiotic was in fact Keflex. On the , she was taken to the operating room by Dr. Meyres and he performed an incision and drainage during which he found a left lateral thigh abscess which was quite deep. His notes indicate that he found chocolate-colored, [id number] pus. This was quite a deep incision, but there was no suggestion that there was involvement of the bone or vital structures of the leg. The patient was subsequently had a dressing and a Dejan drain placed and was sent back to the floor. The patient is relatively unwilling to provide much in the way of history this afternoon, but she does report that the fever and chills she had prior to the incision drainage of her thigh have resolved. She states she is unhappy with the fact that her right neck central line had to be pulled, and then also tells us that she did not like having the right neck central line present, so it is a little bit unclear as to what has been going on with her the last day or two. She states that she is now feeling somewhat better, but she seemed to prefer to lie with her eyes closed rather than interact or give us much in the way of history. She does deny at this point having significant sore throat, cough, shortness of breath or chest pain. She notes she has considerable pain in her thigh which is worse when she gets up to walk on it and go to the bathroom. PAST MEDICAL HISTORY: 1. Intravenous and perhaps intramuscular heroin use. 2. Hepatitis C, status unknown. 3. History of multiple UTIs some of which were resistant to Cipro as well as Bactrim. 4. Anxiety and depression. 5. History of gonorrhea and chlamydia. 6. History of MRSA with our last record of a positive MRSA culture almost four years ago. 7. History of recurrent infections secondary to parenteral drug use. SOCIAL HISTORY: The patient lives with the father of her children in [facility]. She does smoke cigarettes. She does not drink alcohol and she does use heroin. FAMILY HISTORY: The patient has no family history in first-degree relatives of tuberculosis that she is aware of. REVIEW OF SYSTEMS: No significant headache. No acute visual change. No sore throat, cough, shortness of breath. No nausea, vomiting, or diarrhea. No dysuria, urgency, or frequency. No swelling of any joints, and her only real complaint today is just pain in the left thigh in a generalized what appears to be dysphoria. Remainder of the review of systems is negative. PHYSICAL EXAMINATION: Reveals an afebrile woman. Temp 36.5, pulse 69, respiratory rate 18, blood pressure 103/66. She is saturating well on room air. The patient is perhaps depressed and/or angry and does not really want to discuss or interact much, but she is clearly alert and oriented x3 and in no acute distress. Temperature is 36.5. She has actually been afebrile through her short hospital stay. Pulse 69, respiratory rate 18, blood pressure 103/66, saturating well on room air. As mentioned, she is alert, oriented and somewhat withdrawn and/or angry. Head without trauma. Eyes without conjunctivitis. Oral cavity without thrush or pharyngitis. Neck is notable for some erythema and tenderness along the left clavicle. It is unclear to me what this arose from and the patient really refuses much in the way of an exam. She tells us she has not injected drugs there nor suffer any apparent trauma there. On the right neck, there is a dressing placed over what was the site of an IJ. There is no symmetrical erythema present there. Lungs are relatively clear. There is no cervical adenopathy. Cardiac tones: Regular rate and rhythm without murmur. Abdomen soft, nontender without organomegaly. The patient's extremities are benign-appearing. There is no edema, no synovitis and no cellulitis except for the anterior middle thigh which has a large dressing placed over the wound. There is no longer a GIBRAN drain present. I did not remove the dressing as the patient did not seem to be in a situation where she would allow that, and I am not certain what additional benefit would be gained by removing the dressing at this moment. The patient is neurologically intact. LABORATORIES: Include white count currently 5000. Diff is totally normal. Sed rate is an amazing 1 which is actually below normal. Creatinine 0.46. LFTs entirely normal. CRP 6.3, albumin 3.1. A test is negative. Urinalysis without white cells. The admission drug screen was positive for opiates as well as amphetamines. The most recent gonorrhea and chlamydia studies were done in late May. They were negative. In discussion with the micro lab today, show that the abscess of the left thigh is growing a strep intermedius group organism. This is an organism from the group strep constellatus strep intermedius and strep anginosus. These organisms have a tremendous proclivity for abscess formation and severe soft tissue infections. They are very destructive to tissue. No other organisms are growing from the abscess culture. Blood cultures are negative. We do not have a recent urine culture but one from a month ago grew an E. coli resistant to quinolones and Bactrim but susceptible to other agents. In looking back, the patient has had many, many urinary tract infections as well as prior gonorrhea and chlamydia. Her last time she had anything positive for MRSA though was back in 2012 when a nasal screen was positive. She also had bacillus in some blood cultures back in 2013 which is very interesting as bacillus cereus is an organism which is usually a contaminant but in IV drug users can be occasionally quite serious. IMAGING: Imaging includes a chest x-ray which I reviewed which was read as completely clear, and I agree with that interpretation. IMPRESSION: This is an unfortunate, 21-year-old woman who continues to at least intermittently inject drugs and has now suffered another serious infection related to that practice. This appears to be an abscess of the left middle thigh associated with strep milleri group of organisms. The exact identity of this organism should be available tomorrow, but all these are susceptible to our usual gram-positive agents. Given the inherent difficulties in treating a patient such as this with intravenous antibiotics and possible issues about compliance and other factors with oral antibiotics, I would be inclined to treat the patient with a single dose of very effective long-acting agent. I recognize that the use of the glycopeptides is expensive, but I think in this case it is certainly justified. RECOMMENDATIONS: 1. I would discontinue Vanco at this point. 2. The patient can be given a single dose of oritavancin 1200 mg x1 and this can be done tonight. This will give the patient two full weeks of therapy. 3. If the patient loses her peripheral IV, which is currently in her left antecubital fossa, this will not be a major problem once she has received the oritavancin as her complete treatment course will have been done already. 4. I will continue to follow this patient with you and will check up on the final results of the organism tomorrow with the plan to probably sign off and see if she is ready for discharge as early as tomorrow if the other physicians involved in her care concur. 5. Also note that we will be sending a hepatitis C antibody as well as viral load to try and resolve once and for all whether or not she has ever had hep C and, if so, is she currently infected.
[2017-06-28] MEDS ORDERED: Oritavancin Diphosphate 1,200 MG in Dextrose 5% 1,000 ML IV ONE (18:00)
[2017-06-28 19:40] VITALS: BP 105/69; PULSE 77; RESP 16; O2SAT 95
--- NOTE | 2017-06-28 23:56 | NUR ---
IV line pt was found with her peripheral IV disconnected from her IV tubing. she says she woke up and had to go to the bathroom and disconnected the IV tubing so she could morse in there. pt was educated that she need to call nursing staff because only they should be disconnecting her tubing. she says she understands. also the LEGAL PRACTICE MANAGER found a medicine cup tucked underneath the toilet seat out of site. inside of the cup was an unknown substance, it was pink and jell like. pt denies knowing what it is. she requested oxycodone when it was available but since then has been sleeping soundly. she awakes to voice but quickly falls back asleep, no respiratory compromise noted. since pt has been sleeping on rounding nurse has not administered any narcotics this shift. will continue to monitor.
[2017-06-29] MEDS: Heparin 5,000 Unit/mL Inj SUBQ SCH ×2 (00:30→08:12)
[2017-06-29] MEDS: oxyCODONE 1 mg/mL 5 mL Liquid PO PRN ×2 (02:10→09:53)
[2017-06-29] MEDS: diphenhydrAMINE 25 mg Capsule PO PRN ×2 (02:11→09:51)
[2017-06-29 05:18] VITALS: BP 109/71; PULSE 77; RESP 16; O2SAT 95
--- NOTE | 2017-06-29 06:08 | NUR ---
Care resumed Resumed care from Maykel Burns. Pt is alert and oriented and mildy sedated this shift but easily aroused. Denies chest pain or SOB. Medicated for pain with oxycodone 15mg PO with good relief noted. No behavioral issue on this shift. Care continues.
[2017-06-29 08:09] VITALS: BP 100/65; PULSE 98; RESP 16; O2SAT 99
--- NOTE | 2017-06-29 11:04 | NUR ---
Inpatient Wound Nurse Patient seen for L lateral thigh abscess dressing change. Dressing applied yesterday noted with minimal staining on distal edge. It removed easily, silicone facing made removal easy with no real sticking to wound bed which patient finds painful. Patient did complain of pain but this was manageable and lasted only a few seconds. Wound tissue visualized is beefy red and granulating, [place] drain is patent with scant amount of serosanguinous drainage noted on removed dressing. No signs of active infection in periwound skin, which is pink and warm without puckering or bogginess. No periwound wound pockets of firm tissue were palpated. Periwound skin was lightly cleansed, as patient wants least amount of wound contact as possible. Wound was covered with bordered sacral Mepilex dressing with silicone facing which can be peeled away for wound inspection, and then pressed back into place if desired. Nursing staff may change dressing as often as needed, although if clean and dry, it may stay in place 3 to 5 days. Patient provided one extra dressing and instructed to change if needed once she is discharged. Patient has follow up appointment [facility] for Tuesday, June at [address] Restrepo.
--- NOTE | 2017-06-29 11:04 | PROG NOTE ---
[address] [address] PROGRESS NOTE PATIENT: ABDIAS WYATT : 1995 MR#: [id number] ADMIT: 06/25/2017 JOB ID: [id number] DATE: 06/29/2017 INFECTIOUS DISEASE FOLLOW UP NOTE: REASON FOR FOLLOWUP: Left thigh abscess secondary to injection drug use due to strep intermedius. INTERVAL HISTORY: Overnight, the patient received her dose of Oritavancin. Recall that she had been receiving vancomycin prior to the Oritavancin and apparently without much problem, but following the Oritavancin she developed erythema and pruritus over her neck and lower anterior torso. She was given Benadryl but there was some question about whether she might be manipulating her IV or injecting Benadryl into the IV and she has subsequently been switched from IV Benadryl to oral Benadryl for this reaction. She reports that the skin redness and pruritus is gradually fading though still present to some degree. Otherwise no fevers, no chills. No sweats. No oral lesions. No significant cough, shortness of breath, nausea, vomiting or diarrhea. Her dressing was changed over her left thigh today. She still has a Dejan drain in place underneath the dressing. PHYSICAL EXAMINATION: Reveals a young woman in no acute distress. Temperature 36.8, pulse 98, respiratory rate 16, blood pressure 100/65, saturating 99% on room air. No acute distress. No oral lesions. Lungs are clear. Cardiac tones without murmur. Abdomen benign. The left thigh has a dressing in place which the patient did not seem to want us to manipulate and it was just changed so we did not. A Dejan drain is said to be underneath the dressing though it is not visible. The patient does have an erythematous macular rash which is most present around the diaphragmatic area just below the breast and just above the abdomen. This is a bandlike erythema. There is no blistering or bullae in association with it. LABORATORIES: Include a white count yesterday 5000. Sed rate 1. We did not repeat that today. Liver function tests are normal. Albumin 3.1. Hep C antibody and quantitation are pending. A culture of from the left thigh is growing strep intermedius but the lab cannot do susceptibilities at this time because it is a dry difficult colony to work with. We anticipate susceptibilities in the near future but virtually all of these would be expected to be susceptible to Oritavancin. IMPRESSION: This woman with longstanding injection drug use who presents with an abscess in her left thigh due to strep intermedius. Yesterday she was tolerating vanco reasonably well though I guess perhaps she was requesting Benadryl for pruritus at that point as well. In any event, we made the decision to give her a single dose of Oritavancin which seems to have precipitated a red man type reaction which is slow to fade this morning. There is no evidence though for Hernandez-Dakota syndrome or dress or any other life-threatening complication of the Oritavancin as at this point, she seems to have a fading erythematous macular rash. RECOMMENDATIONS: 1. No additional IV antibiotics are needed as Oritavancin will work for another 10-14 days. 2. Before discharge though need to be definitive plan as to what to do with her Dejan drain into her thigh. 3. At this point, ID will go ahead and sign off on this patient, but do not hesitate to call me if there is additional questions or issues regarding the infection or the Oritavancin drug reaction. Note that I have placed Oritavancin in her list of adverse reactions on the computer.
[2017-06-29] MEDS ORDERED: FERR-74 PO (11:39)
[2017-06-29] MEDS ORDERED: oxyCODONE 1 mg/mL 5 mL Liquid PO PRN (11:55)
--- NOTE | 2017-06-29 12:52 | NUR ---
Social Work- Readiness for D/C Data: EMR reviewed. Pt is on day 4 of hospitalization for left thigh cellulitis, abscess per H&P. Pt discussed in multidisciplinary rounds. Pt is likely to d/c in 1-2 days. Pt will d/c with [place] drain and follow up with PCP and Wound Center is required. Pt has no PCP currently. SMALL [employer] ARTILLERY REPAIRER coordinated hospital follow up appointment with [facility] on TuesdayJuly 01. Provider will provide orders and a verbal referral to Wound Center at that appointment. Wound Center will then pursue insurance authorization for outpt care and schedule pt as soon as they are able to remove Dejan drain (July 08 at latest, ideally). Pile Driver Engineer and pt updated of this plan. Pt agreeable, SW awaiting confirmation from Pile Driver Engineer. SW will continue to follow. Assessment: Pt who is independent at baseline who requires outpt wound follow up Plan: Pt to get referral to Wound Center from [facility] provider. Pt to d/c home with her ex to transport via POV. No additional d/c needs. Pt agreeable to this plan, SW awaiting clearance from Pile Driver Engineer. SW will continue to follow. RADHA Godinez
[2017-06-29] MEDS ORDERED: OXYC-474 PO (13:19)
--- NOTE | 2017-06-29 13:34 | PCM.PNSURG ---
Subjective Date of Service: Jun 29, 2017 Date of Service: Jun 29, 2017 Visit Information: Reason for Visit Left Thigh Cellulitis, Abscess Surgery/Surgery Date Post-Op Day # 3 Status post incision and drainage of left thigh lateral abscess Date of Admission: Jun 25, 2017 at 21:47 Hospital Day # Subjective: Patient seen this a.m. reporting feeling better and desired discharge today denying increased pain, fever, &/or chills. She was also seen by ID signed off & made recommendations for 2 weeks of medical therapy. Wound therapy reports stable wound status. Dr. Restrepo is planning on discharging the patient today. Postop General: No Complaints Gastrointestinal: Good Appetite, Tolerating Oral Feedings, No N/V Pain Management: Good Pain Control Postop Activity: Ambulating Independently Objective Vital Sign- Last 8 Hours Date Time Temp Pulse Resp B/P Pulse Ox O2 Delivery O2 Flow Rate FiO2 06/29/17 08:09 36.8 98 16 100/65 99 Room Air Intake and Output- Last 8 Hour 06/29/17 Cumulative From/Thru 07:00 06/25/17 20:13 - 06/29/17 05:18 Intake Total 2771 ml 9300 ml Output Total 2000 ml 6350 ml Balance 771 ml 2950 ml Intake Oral 1772 ml 6384 ml IV Total 999 ml 2916 ml Output Urine Total 2000 ml 6350 ml # Voids 5 # Bowel Movements 0 1 General: Alert, Oriented X3, Cooperative Lungs: Clear to Auscultation Heart: Exam Unremarkable Abdomen: Benign SURGICAL WOUND : Wound Location/Description Physical exam consistent with surgically stable & clean Incision with counter incision including randall drain, without drainage, or obvious sinus tracts; including resolving erythema & induration. Dressing & Drainage Status: Dressing Removed Extremities: Thigh&Calf Soft/Nontender Neuro: Normal Speech Result Diagram: 06/28/17 0645 06/26/17 0530 Assessment & Plan Impression Primary Diagnosis: 1. Left lateral thigh abscess 2. Status post incision and drainage of left lateral thigh cellulitis & abscess (deep) POD # 3 - Stable from General Surgery standpoint with no current need for further surgical involvement; will defer to ID and sign off with wound clinic follow up plan.. 3. 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 Dr. Restrepo notified and general surgery will sign off. 2. Deferred to ID for infection medical treatment recommendations. 3. Recommend changing dressing daily or as needed. 4. Follow-up in wound care clinic next week. 5. Patient should establish care with residency clinic in 1-2 weeks. Thank you VTE Prophylaxis: Sub-Q Heparin (Unfractionated) Resuscitation Status: CPR: Attempt Resuscitation Brandon Cassidy PA-C Jun 29, 2017 13:34
--- NOTE | 2017-06-29 14:30 | NUR ---
Social Work- Discharge Data: EMR reviewed. Pt to discharge today, discharge orders are active. SW faxed written instructions to [facility] regarding pt's necessary follow up and plan of care. Pt's follow up appointment information is written in her d/c instructions. Wound follow up plan cleared with [employer] Adf Consultant. Pt agreeable to plan. Pt to d/c home with her ex to transport via POV. No additional d/c needs. Assessment: Pt who is independent at baseline and capable of self-care Plan: Pt to d/c home with her ex to transport via POV. Follow up at [facility] on the . Referral to Wound Center to be obtained at that time. No additional d/c needs. RADHA Godinez
[2017-06-29 14:53] VITALS: BP 93/57; PULSE 72; RESP 17; O2SAT 97
--- NOTE | 2017-06-29 16:01 | NUR ---
Inpatient Wound Nurse No insurance authorization for patient to be seen at outpatient Wound Center until after she is seen by PCP. Wound Center awaiting referral from PCP, can likely get authorization and schedule patient while she is at PCP visit. Wound Center aware that patient needs visit, awaiting referral.
--- NOTE | 2017-06-29 16:20 | NUR ---
Discharge Pt to discharge with her friend, security called and personal belongings unlocked for pt to take home, 1 IV access discontinued. Pt to discharge and f/u with PCP within 1 week, Rx's for Oxycodone and Iron given to pt at time of discharge. Pt encouraged to keep dressing dry and to no submerge left leg in water and keep dry when taking a shower, encouraged to take all medications as prescribed and to abstain from drug use, to which pt states understanding. All personal belongings with patient at time of discharge. Pt amb off unit ind with steady gait and RN.
--- NOTE | 2017-06-29 21:26 | PCM.DC.MED ---
Discharge Summary Date of Service Jun 29, 2017 Dates of Hospitalization Date of Hospital Admission Jun 25, 2017 at 21:47 Date of Discharge: Jun 29, 2017 Providers: Admitting Physician: Sera Ortiz DO Primary Care Physician: Job Attending Physician: Akosua Galdamez DO Diagnosis at Time of Discharge Diagnosis at Time of Discharge Left proximal limb cutaneous abscesses status post incision and drainage Consultations General surgery, wound care Procedures Invasive Procedures 06/26/17 left lateral thigh abscess incision and drainage, [place] drain placement by Dr. Meyers Brief History 21yoF with history of IVDU, hepatitis C, MRSA abscesses admitted due to outpatient failure of treatment of cellulitis s/p I&D Patient states that she has been on methadone but had a relapse about three weeks ago at which time she notes a left thigh wound that began to develop. It continued to worsen until 5 days ago when she was seen at [facility] ED and the area was found to have an abscess. I&D was completed and patient was discharged with abx. Despite taking abx her left thigh cellulitis worsened. Associated symptoms include fevers and chills. She denies any other complaints at this time Patient is currently on methadone treatment and [place] Daily dose is 70mg / day. Hospital Course 21yoF with history of IVDU, hepatitis C, MRSA abscesses admitted due to outpatient failure of treatment of cellulitis s/p I&D Left thigh abscess, acute, POA - history of MRSA associated infection, contact precautions -abscess drained by ED several days DIRECTOR LEARNING then failed outpatient treatment with keflex -given ceftriaxone / vancomycin in ED, then piperacillin/tazobactam and vancomycin (pharmacy to dose) on admission - Incision and drainage of left lateral thigh abscess, deep. by Dr Meyers Jun 26 - wound culture from Jun 26 with [facility] on gram stain so DC'd Zosyn Jun 27 - IV Dilaudid started Jun 26 when patient threatened to leave AMA without it prior to her incision and drainage but DC'd day after procedure - She was given 10 mg oxycodone every 4 hours when necessary (after a phone call discussion with Dr. Singh). -- She is asked to follow up with associated residency clinic with PCP care, she will need to obtain a wound care referral via PCP -- She is asked to see the wound care early next week -- Surgery has cleared her for discharge, infectious disease has signed off after last night's ortavancin and this am visit Hx Herion abuse with recent relapse -patient is currently on methadone at 70 mg daily (confirmed with her outpt clinic) Microcytic anemia, stable this morning compared to admission - iron panel with significantly low iron and percent saturation (although TIBC also low) - Ferrous sulfate twice a day by mouth for discharge Thrombocytopenia, acute, POA, resolved -unclear etiology -in normal range the day following admission Exam Vital Signs (Last) Date Time Temp Pulse Resp B/P Pulse Ox O2 Delivery O2 Flow Rate FiO2 06/29/17 08:09 36.8 98 16 100/65 99 Room Air 06/26/17 16:20 8 Test 06/25/17 23:20 06/26/17 05:30 06/28/17 04:45 06/28/17 06:45 Erythrocyte Sedimentation Rate 1mm/hr (0-32) Lactic Acid Level 0.9mmol/L (0.4-2.0) C-Reactive Protein 6.3mg/dL (0.0-0.5) Human Chorionic Gonadotropin, Qual Negative (Negative) Sodium Level 139mEq/L (134-144) Potassium Level 4.1mEq/L (3.5-5.2) Chloride Level 105mEq/L (97-108) Carbon Dioxide Level 23mmol/L (18-29) Blood Urea Nitrogen 5mg/dL (6-20) Creatinine 0.46mg/dL (0.57-1.00) Estimat Glomerular Filtration Rate 241mL/min (>59) Glucose Level 101mg/dL (60-99) Calcium Level 8.1mg/dL (8.5-10.1) Iron Level 14ug/dL (35-150) Total Iron Binding Capacity 216ug/dL (250-450) Percent Iron Saturation 6%sat (15-50) Unsaturated Iron Binding 201.9ug/dL Total Bilirubin 0.2mg/dL (0.0-1.2) Aspartate Amino Transf (AST/SGOT) 23U/L (0-50) Alanine Aminotransferase (ALT/SGPT) 19U/L (0-32) Alkaline Phosphatase 106U/L (25-150) Total Protein 5.6g/dL (6.4-8.4) Albumin 3.1g/dL (3.4-5.0) Ferritin 42ng/mL (13-150) Vancomycin Level Trough 14.0mcg/mL White Blood Count 5.0th/mm3 (3.8-10.1) Red Blood Count 3.86mil/mm3 (3.90-5.20) Hemoglobin 9.8g/dL (12.0-15.6) Hematocrit 30.8% (35.0-46.0) Mean Corpuscular Volume 79.8fL (81-100) Mean Corpuscular Hemoglobin 25.4pg (27.0-35.0) Mean Corpuscular Hemoglobin Concent 31.8% (32.0-37.0) Red Cell Distribution Width 13.7% (12.3-15.4) Platelet Count 214bil/L (150-400) Neutrophils (%) (Auto) 46.8% (40-74) Lymphocytes (%) (Auto) 45.8% (14-46) Monocytes (%) (Auto) 6.6% (4-12) Eosinophils (%) (Auto) 0.6% (0-5) Basophils (%) (Auto) 0.2% (0-3) Test 06/28/17 16:14 Hepatitis C Antibody >11.0s/co ratio Discharge Medications Discharge Medications Ferrous Sulfate (Feosol) 325 Mg Tablet 325 MG PO BIDWM Prescribed by: AKOSUA GALDAMEZ DO Methadone (Methadone) 10 Mg Tab 70 MG PO QAM (Reported) As needed Ibuprofen (Ibuprofen) 200 Mg Capsule 400 MG PO QID PRN PRN For Pain (Reported) Oxycodone (Roxicodone) 5 Mg Tablet 10 MG PO Q4H PRN PRN For Pain Prescribed by: AKOSUA GALDAMEZ DO Time spent Greater than 30 minutes was spent in preparation of discharge with greater than 50% of that time dedicated to patient counseling and coordination of care. Akosua Galdamez DO Jun 29, 2017 13:26
--- NOTE | 2017-06-29 22:56 | PCM.DIMED ---
Discharge Instructions Date of Service Jun 29, 2017 Dates of Hospitalization Jun 25, 2017 at 21:47 Discharge Diagnosis Discharge Diagnosis Abscess of left thigh s/p I&D, IVDU on methadone tx Diet Discharge Diet: No restrictions Activity Discharge Activity: Limited until seen by PCP Call your provider Call your provider for: Fever or Chills, Shortness of breath, Bleeding, Chest pain, Vomitting, Excessive diarrhea, Weakness (unilateral) Patient Instructions Patient Instructions Please keep the incision site clean and dry. May shower, and change to dry dressing after shower. Do not remove the randall drain Follow-up plan F/U with [facility] residency for PCP in 4 days F/U with Woundcare early next week for the randall self and wound care Carolynn Restrepo DO Jun 29, 2017 13:26
== END 2017-06-29 16:16 | disposition home or self-care (01) | DRG 603 ==
LOC: SED 20:07 → OBSVTOIN 21:47 → OSC 21:47
PROVIDERS: ADMIT Internal Medicine; ATTEND Family Medicine
PROC: 0J9M00Z Drainage of Left Upper Leg Subcutaneous Tissue and Fascia with Drainage Device, Open Approach (ICD-10-PCS; principal; 2017-06-26 15:30)
DX: L03.116 Cellulitis of left lower limb (principal); D69.6 Thrombocytopenia, unspecified; F11.10 Opioid abuse, uncomplicated; Z86.14 Personal history of Methicillin resistant Staphylococcus aureus infection; B19.20 Unspecified viral hepatitis C without hepatic coma; F17.210 Nicotine dependence, cigarettes, uncomplicated; B95.4 Other streptococcus as the cause of diseases classified elsewhere

== ENCOUNTER 2017-07-04 10:47 | Emergency (ER) | payer OTHER ==
[~2017-07-04 10:47] MED LIST changes: -AMOX-364 PO; -CIPR-198 PO; -DOXY100C43 PO; +FERR-74 PO; +IBUP200C PO; -METR500T PO; +MTH10T PO; +OXYC-474 PO; -SULF1TAB7 PO
[2017-07-04 11:14] VITALS: BP 119/76; PULSE 100; RESP 15; O2SAT 100
--- NOTE | 2017-07-04 13:41 | ED.REPORT ---
HPI-Extremity Problem Lower Date of Service Jul 04, 2017 ED Provider: Doc,Ed MD This is a 21-year-old female with history of IV drug abuse and left lateral abscess status post I&D and [place] drain one week prior, who presents to the emergency department for fever. Patient notes she has been developing fevers and swelling in her legs and was told to return to the ED if the symptoms occur. She denies any numbness or loss in strength in her extremities. She notes that she has not had follow-up of her wound as she was supposed to with wound care and the residency clinic after her discharge. She also notes of some chest pain and shortness of breath recently. She also complains of nausea , vomiting, suprapubic abdominal pain. She notes dysuria, frequency of urination starting today. She still has been using heroin with last use 2 days prior. She was treated with ortavancin last week for her infection. Nursing Notes Stated Complaint: POSSIBLE INFECTION POST SURGERY Chief Complaint: Extremity Trauma Nursing Notes Reviewed: Yes Allergies: Coded Allergies: oritavancin (Verified Adverse Reaction, Intermediate, Rash,Itching,, ) also reports similar reaction with vanco Scheduled Ferrous Sulfate (Feosol) 325 Mg Tablet 325 MG PO BIDWM Methadone (Methadone) 10 Mg Tab 70 MG PO QAM Sulfamethoxazole/Trimeth 800-160 mg (Bactrim DS 800-160 mg) 1 Each Tablet 1 TABLET PO BID Scheduled PRN Ibuprofen (Ibuprofen) 200 Mg Capsule 400 MG PO QID PRN PRN For Pain Oxycodone (Roxicodone) 5 Mg Tablet 10 MG PO Q4H PRN PRN For Pain General Time Seen by MD: 13:40 Chief Complaint Other (fever) Risk-Extremity Prob Lower Well's Criteria for DVT Bed >3d/Surg in 4wks (1) Past Medical History Past Medical History Pyelonephritis Bipolar Hepatitis C Anxiety Gonorrhea Chlamydia Asthma Depression Heroin use IV drug abuse Multiple MRSA abscesses Hx osteomyelitis of R wrist Past Surgical History I&D R arm abscess Family History Noncontributory Smoking History Current Every Day Smoker Social History Alcohol Use: Denies alcohol use Drug Use: In recovery, IV drugs, Meth, Other Other Social History: Local resident, Homeless Ambulatory Status Independent Review of Systems Constitutional: Reports: Fever Musculoskeletal: Reports: Extremity swelling Complete sys rev & neg: except as marked. Respiratory: Reports: Shortness of breath Cardiovascular: Reports: Chest pain GI: Reports: Vomiting, Denies: Diarrhea, Hematemesis Female: Reports: Dysuria, Urinary frequency Physical Exam Initial Vital Signs Vital Signs (First) Date Time Temp Pulse Resp B/P Pulse Ox O2 Delivery O2 Flow Rate FiO2 07/04/17 11:14 36.7 100 15 119/76 100 Room Air Initial VS: Reviewed General/Constitutional: Well-developed, Well-nourished Head / Eyes: Atraumatic, Normocephalic ENT: No scleral icterus Respiratory: Breath sounds normal, Clear to auscultation, No respiratory distress Cardiovascular: Regular rate & rhythm, Heart sounds normal Abdomen / GI: Soft, No guarding, No rebound, No distention Upper Extremities: Vascular intact, Neuro intact Skin: Warm, Dry Neurologic: Alert, Oriented Lower Extremity / Pelvis / MS: No swelling, Non-tender, Vascular intact Left lateral thigh with Dejan drain, with wound healing well. No pustular discharge noted. No erythema noted. tenderness Mild suprapubic tenderness. Interpretation & Diagnostics Lab Results Interpretation Result Diagram: 07/04/17 1410 07/04/17 1410 Test 07/04/17 14:10 07/04/17 16:28 White Blood Count 9.0th/mm3 (3.8-10.1) Red Blood Count 4.42mil/mm3 (3.90-5.20) Hemoglobin 11.3g/dL (12.0-15.6) Hematocrit 34.6% (35.0-46.0) Mean Corpuscular Volume 78.3fL (81-100) Mean Corpuscular Hemoglobin 25.6pg (27.0-35.0) Mean Corpuscular Hemoglobin Concent 32.7% (32.0-37.0) Red Cell Distribution Width 13.7% (12.3-15.4) Platelet Count 275bil/L (150-400) Neutrophils (%) (Auto) 70.0% (40-74) Lymphocytes (%) (Auto) 20.5% (14-46) Monocytes (%) (Auto) 6.9% (4-12) Eosinophils (%) (Auto) 2.4% (0-5) Basophils (%) (Auto) 0.1% (0-3) Erythrocyte Sedimentation Rate 44mm/hr (0-32) D-Dimer < 0.5mg/L FEU (<0.50) Sodium Level 139mEq/L (134-144) Potassium Level 4.2mEq/L (3.5-5.2) Chloride Level 101mEq/L (97-108) Carbon Dioxide Level 23mmol/L (18-29) Blood Urea Nitrogen 11mg/dL (6-20) Creatinine 0.64mg/dL (0.57-1.00) Estimat Glomerular Filtration Rate 165mL/min (>59) Glucose Level 74mg/dL (60-99) Calcium Level 8.7mg/dL (8.5-10.1) Total Bilirubin 0.2mg/dL (0.0-1.2) Aspartate Amino Transf (AST/SGOT) 50U/L (0-50) Alanine Aminotransferase (ALT/SGPT) 55U/L (0-32) Alkaline Phosphatase 165U/L (25-150) Troponin T < 0.010ug/L (0.0-0.011) Total Protein 6.6g/dL (6.4-8.4) Albumin 3.6g/dL (3.4-5.0) Urine Color Yellow (YELLOW) Urine Appearance Clear (CLEAR,HAZY) Urine pH 6.5 (5.0-8.0) Urine Specific [place] 1.020 (1.003-1.035) Urine Protein Negativemg/dL (NEG,TRACE) Urine Glucose (UA) Negativemg/dL (NEGATIVE) Urine Ketones Negativemg/dL (NEGATIVE) Urine Occult Blood Negative (NEGATIVE) Urine Nitrite Negative (NEGATIVE) Urine Bilirubin Negative (NEGATIVE) Urine Urobilinogen Normalmg/dL (NORMAL) Urine Leukocyte Esterase Negative (NEGATIVE) Urine RBC 0-2/hpf (0-2) Urine WBC 0-5/hpf (0-5) Urine Epithelial Cells Moderate/hpf (NONE-MOD) Urine Crystals None seen (NONE SEEN) Urine Bacteria Few/hpf (NONE-FEW) Urine Hyaline Casts None/lpf (NONE) Urine Granular Casts None seen (NONE SEEN) Urine Waxy Casts None seen (NONE SEEN) Urine Red Blood Cell Casts None seen (NONE SEEN) Urine White Blood Cell Casts None seen (NONE SEEN) Urine Mucus None seen (None Seen) Urine Trichomonas None seen (NONE SEEN) Urine Yeast None (NONE SEEN) Urinalysis Comment None Urine Culture Reflexed Not indicated Re-Eval/Medical Decision Med Decision/Clinical Course Attending note: I saw and personally evaluated this patient area site of abscess is well-appearing, white blood cell count is normal, sedimentation rate is elevated, for this reason an ultrasound and blood cultures are ordered. Ultimately there is no evidence of recurrent abscess, will plan to discharge on Bactrim. This is a 21-year-old female with history of IV drug abuse and left lateral thigh abscess status post incision and drainage and dejan drain treated with oritavancin, who presents to the emergency department with subjective fever. Patient did have a lot of symptomatic complaints including chest pain and shortness of breath. Heart and lung examination are unremarkable. On examination of patient's wound, it seems to be healing well without any pustular drainage noted. There are no signs of erythema though patient is having markedly tenderness. Patient's CBC and CMP unremarkable except for AST mildly elevated which is chronic. D-dimer was negative. UA was unremarkable. EKG showed sinus rhythm. There did not seem to be any evidence of any DVT/PE. Left lower extremity ultrasound to evaluate for abscess was done and did not show any evidence of an ongoing abscess. Recommend follow-up with wound care and residency clinic as was discussed at her last discharge from the hospital. In case of developing wound infection, will give Bactrim twice a day for 5 days. Blood cultures were drawn prior to her departure. Discharge & Departure Impression: Primary Impression: Infected wound Disposition: Home Discharge Condition All VS Reviewed: Yes Condition: Stable Patient Instructions: Chronic Wound Care (ED) Additional Instructions: Follow-up with the wound care clinic and residency clinic this week. If you start to notice thick green drainage from your wound and develop fevers of 100.4 F or more, return to the ED. At this time, there is no evidence of abscess or infection at this time based off of inspection, ultrasound and blood work. I have prescribed Bactrim in case of developing wound infection. take this twice daily for 5 days. We did order blood cultures in case of blood infection. If these come back positive we will give you a call. Referrals: NOPCP (PCP) Attending Statement The patient was seen and examined together with Dr. humphrey on 07/04/17 and I have added additional information to the note above. O'Chiqui,Gavin S DO Jul 04, 2017 13:41 Yaniv Humphrey DO Jul 04, 2017 14:06
[2017-07-04 14:24] LABS: BASOPHILS % (AUTO) 0.1 % (0-3); EOSINOPHILS % (AUTO) 2.4 % (0-5); MONOCYTES % (AUTO) 6.9 % (4-12); Mean Corpuscular Hemoglobin 25.6 pg (27.0-35.0); Mean Corpuscular Volume 78.3 fL (81-100); Platelet Count 275 bil/L (150-400)
--- NOTE | 2017-07-04 14:34 | DRSVH ---
PROCEDURE: X-RAY CHEST ONE VIEW, PORTABLE ([id number]) INDICATIONS: chest pain, fevers TECHNIQUE: One view of the chest was acquired. COMPARISON: [facility], CR, XR CHEST 1VW, 06/25/2017, 22:49. FINDINGS: Surgical changes and devices: Previously seen right-sided central line catheter has been removed. Lungs and pleura: No pleural effusions or pneumothorax. Lungs are clear. Mediastinum: Mediastinal contours appear normal. Heart size is normal. Bones and chest wall: No suspicious bony lesions. Overlying soft tissues appear unremarkable. IMPRESSION: Negative chest. No acute cardiopulmonary process is evident. Dictated by: Jerald Jaimes M.D. on 07/04/2017 at 13:31 Approved by: Jerald Jaimes M.D. on 07/04/2017 at 13:32
[2017-07-04 15:00] LABS: TROPONIN T < 0.010 ug/L (0.0-0.011)
[2017-07-04 15:06] LABS: ERYTHROCYTE SEDIMENTATION RATE 44 mm/hr (0-32)
--- NOTE | 2017-07-04 16:44 | DRSVH ---
PROCEDURE: US EXTREMITY SONOGRAM LIMITED ([id number]) INDICATIONS: Left LE abscess s/p I&D 1 week prior TECHNIQUE: Real-time scanning was performed of the left lateral thigh, with image documentation. COMPARISON: [facility], US EXTREMITY LTD, 06/26/2017, 0:15. FINDINGS: No fluid collection or other soft tissue abnormalities visualized within the left lateral t high at the level of previous I&D. IMPRESSION: No soft tissue fluid collections or other abnormality seen. Dictated by: Nicholas HURST Interpreted: Sixto Valencia MD on 07/04/2017 at 16:40 Approved by: Dawson Valencia M.D. on 07/04/2017 at 16:41
[2017-07-04 16:45] LABS: APPEARANCE,URINE CLEAR (CLEAR,HAZY); COLOR,URINE YELLOW (YELLOW); OCCULT BLOOD,URINE NEGATIVE (NEGATIVE); PH,URINE 6.5 (5.0-8.0); UROBILINOGEN,URINE NORMAL (NORMAL)
[2017-07-04] MEDS ORDERED: SULF1TAB35 PO (16:54)
== END 2017-07-04 17:18 | disposition left against medical advice (07) ==
LOC: SED 10:47
DX: L08.9 Local infection of the skin and subcutaneous tissue, unspecified (principal); F17.200 Nicotine dependence, unspecified, uncomplicated; Z88.1 Allergy status to other antibiotic agents